=== PATIENT | male | born 1965 | race Caucasian/White ===

== ENCOUNTER 2016-10-14 10:06 | Inpatient (IN) ==
--- NOTE | 2016-10-14 10:25 | Emergency Department Note ---
Disposition Clinical Impression: Cellulitis of right lower extremity Disposition: Admitted As Inpatient Condition: Good Referrals: Beka Young MD [Primary Care Provider] - Forms: ED Satisfaction Letter Time of Disposition: 12:54 Extremity Problem HPI - General Chief complaint: ED Extremity Problem,Nontraumatic Stated complaint: R leg pain/swelling s/p sx 09/27/16 Time Seen by Provider: 10/14/16 10:13 Source: patient, family Limitations: physical limitation Nursing Notes Reviewed: Yes Vital Signs Reviewed: Yes - History of Present Illness HPI Narrative: 51-year-old male presents emergency room for right lower extremity pain and swelling. Patient had varicose vein stripping done to the lower extremities proximally 2-3 weeks ago. He has had persistent right lower extremity pain and swelling. Seen postoperatively by his vascular surgeon for this and was started on Keflex. He also had ultrasound done as an outpatient of the right lower extremity which was negative for any blood clots. He presents to the ER today for increasing pain and warmth and redness to the right lower extremity. The left lower extremity he has had no problems with. He denies any documented fevers. No chest pain shortness of breath. No other complaints. he finished all of his keflex Pt Subjective Complaint: extremity pain, extremity swelling Onset (ago): day(s) Consistency: constant Injury Location: right Pain Scale: 6 Quality: aching Radiation: none Improves with: nothing Worsens with: weight bearing, walking, palpation Associated symptoms: Reports: denies other symptoms Context: recent surgery/procedure - Related Data Home Medications Medication Instructions Recorded Confirmed Atenolol [Tenormin] 75 mg PO DAILY #0 03/31/15 10/04/16 Atorvastatin Calcium [Lipitor] 80 mg PO HS #0 03/31/15 10/04/16 Clopidogrel [Plavix] 75 mg PO DAILY #0 03/31/15 10/04/16 Famotidine [Pepcid] 20 mg PO HS #0 03/31/15 10/04/16 Hydrochlorothiazide 25 mg PO DAILY #0 03/31/15 10/04/16 Aspirin Enteric Coated [Aspirin EC] 81 mg PO DAILY 11/03/15 10/04/16 Multivitamin [Multivitamins] 1 each PO DAILY 11/03/15 10/04/16 Potassium 99 mg PO DAILY 11/03/15 10/04/16 Albuterol Sulfate [Albuterol 2 puff IH Q4HR PRN 08/13/16 10/04/16 Inhaler] Cetirizine HCl [Zyrtec] 10 mg PO DAILY 08/13/16 10/04/16 Cyclobenzaprine HCl 5 mg PO DAILY PRN 08/13/16 10/04/16 Isosorbide MONOnitrate (24 HR) 60 mg PO DAILY 08/13/16 10/04/16 [Imdur] Nitroglycerin [Nitrostat] 0.4 mg SL Q5M PRN 08/13/16 10/04/16 Pantoprazole Sodium [Protonix] 40 mg PO DAILY 08/13/16 10/04/16 Previous Rx's Medication Instructions Recorded Acetaminophen [Tylenol] 1,000 mg PO Q6HR PRN #0 tablet 09/23/16 OxyCODONE/APAP 5/325 [Percocet 1 each PO Q4HR PRN #20 tablet 10/04/16 5/325 MG] Allergies Allergy/AdvReac Type Severity Reaction Status Date / Time No Known Allergies Allergy Verified 10/14/16 10:08 All systems ED: reviewed and negative except as stated. Constitutional: Reports: as per HPI Eyes: Reports: as per HPI Cardiovascular: Reports: as per HPI Respiratory: Reports: as per HPI Gastrointestinal: Reports: as per HPI Integumentary: Reports: other (redness to RLE) Neurological: Reports: as per HPI Psychiatric: Reports: as per HPI Endocrine: Reports: as per HPI Hematological/Lymphatic: Reports: as per HPI Allergic/Immunologic: Reports: as per HPI Past Medical History - Past Medical History Medical history: Reports: hyperlipidemia, hypertension, myocardial infarction, other Surgical history: Reports: angioplasty/stent, appendectomy Psychiatric history: Reports: no psych history - Social History Smoking Status: Never smoker Smokeless Tobacco Status: No Alcohol use: Reports: none Drug use: Reports: none Physical Exam - General Limitations: physical limitation General appearance: alert, in no apparent distress - Head Head exam: atraumatic, normocephalic - Neck Neck exam: Present: normal inspection - Chest Chest inspection: Present: normal inspection - Respiratory Respiratory exam: Present: normal lung sounds bilaterally - Cardiovascular Cardiovascular exam: Present: regular rate, normal rhythm - Abdominal Exam Abdominal exam: Present: soft, Non-Tender, normal bowel sounds - Extremities Exam Extremities exam: Present: tenderness (diffuse tenderness to Right calf, medially along GSV course. some redness to this area as well. ) - Neurological Exam Neurological exam: Present: alert, oriented X3 - Psychiatric Psychiatric exam: Present: normal affect, normal mood - Skin Skin exam: Present: warm, dry, intact Course Course Narrative: Patient had a right lower extremity Doppler that was negative for any acute DVT. Lab work was stable. We will start the patient on IV vancomycin. I spoke with his vascular surgeon and with the hospitalist. We will admit for observation. Vital Signs Temperature 97.7 F 10/14/16 10:08 Pulse Rate 77 10/14/16 10:08 Respiratory Rate 18 10/14/16 10:08 Blood Pressure 143/84 10/14/16 10:08 O2 Sat by Pulse Oximetry 96 10/14/16 10:08 Temperature 97.7 F 10/14/16 10:08 Pulse Rate 77 10/14/16 10:08 Respiratory Rate 18 10/14/16 10:08 Blood Pressure 143/84 10/14/16 10:08 O2 Sat by Pulse Oximetry 96 10/14/16 10:08 Oxygen Delivery Oxygen Delivery Room Air Extremity Problem, Nontraumati - Lab Data Result diagrams: 10/14/16 10:36 10/14/16 10:36 Lab Results 10/14/16 10/14/16 Range/Units 10:36 10:36 WBC 7.4 (4.3-11.1) K/mcL RBC 5.27 (4.19-5.50) M/mcL Hgb 14.5 (12.9-16.9) g/dL Hct 44.7 (37.5-50.1) % MCV 84.8 (83.0-100.0) fL MCH 27.5 L (28.0-33.3) pg MCHC 32.4 (31.6-35.5) g/dL RDW 13.9 (11.5-14.5) % Plt Count 197 (140-400) K/mcL MPV 11.1 (9.4-12.4) fL Immature Gran % 0.3 (0-4) % Seg Neutrophils % 62.7 % Lymphocytes % 25.2 % Monocytes % 7.1 % Eosinophils % 4.3 % Basophils % 0.4 % Neutrophils # 4.6 (1.6-8.9) K/mcL Lymphocytes # 1.9 (0.6-4.6) K/mcL Monocytes # 0.5 (0.0-1.3) K/mcL Eosinophils # 0.3 (0.0-0.6) K/mcL Basophils # 0.0 (0.0-0.2) K/mcL Sodium 140 (136-145) mEq/L Potassium 3.9 (3.5-4.5) mEq/L Chloride 103 (98-109) mEq/L Carbon Dioxide 29 (19-29) mEq/L BUN 15 (8-26) mg/dL Creatinine 0.88 (0.72-1.25) mg/dL Est GFR ( Amer) > 60 (> 60) Est GFR (Non-Af Amer) > 60 (> 60) BUN/Creatinine Ratio 17 (6-26) Glucose 112 H (70-99) mg/dL Calculated Osmolality 292 (280-300) Calcium 9.3 (8.6-10.8) mg/dL
[2016-10-14 10:49] LABS: Basophils % 0.4 %; Eosinophils # 0.3 K/mcL (0.0-0.6); Eosinophils % 4.3 %; Hematocrit 44.7 % (37.5-50.1); Hemoglobin 14.5 g/dL (12.9-16.9); Immature Granulocytes % 0.3 % (0-4); Lymphocytes # 1.9 K/mcL (0.6-4.6); Lymphocytes % 25.2 %; Mean Corpuscular HGB Conc 32.4 g/dL (31.6-35.5); Mean Corpuscular Hemoglobin 27.5 pg (28.0-33.3); Mean Corpuscular Volume 84.8 fL (83.0-100.0); Mean Platelet Volume 11.1 fL (9.4-12.4); Monocytes # 0.5 K/mcL (0.0-1.3); Monocytes % 7.1 %; Neutrophils # 4.6 K/mcL (1.6-8.9); Platelet Count 197 K/mcL (140-400); Red Blood Count 5.27 M/mcL (4.19-5.50); Red Cell Distribution Width 13.9 % (11.5-14.5); Segmented Neutrophils % 62.7 %
[2016-10-14 11:01] LABS: BUN/Creatinine Ratio 17 (6-26); Blood Urea Nitrogen 15 mg/dL (8-26); Calcium 9.3 mg/dL (8.6-10.8); Carbon Dioxide 29 mEq/L (19-29); Chloride 103 mEq/L (98-109); Glucose 112 mg/dL (70-99); Osmolality,Calculated 292 (280-300); Potassium 3.9 mEq/L (3.5-4.5); Sodium 140 mEq/L (136-145); eGFR For African Americans > 60 (> 60); eGFR For Non-African Americans > 60 (> 60)
[2016-10-14] MEDS ORDERED: Vancomycin 1,500 MG in D5% in Water 250 ML IVPB ONE (13:00)
[2016-10-14] MEDS ORDERED: Naloxone 0.4 MG/ML INJ IVP PRN (13:04)
[2016-10-14] MEDS ORDERED: Ondansetron 4 MG/2 ML VIAL IVP PRN (13:04)
[2016-10-14] MEDS ORDERED: Acetaminophen 325 MG TABLET PO PRN (13:04)
[2016-10-14] MEDS ORDERED: Nitroglycerin 0.4 MG TAB.SUBL SL PRN (13:37)
--- NOTE | 2016-10-14 14:41 | Internal Med History&Physical ---
<Berkley Torres - Last Filed: 10/14/16 14:57> Date of Encounter: 10/14/16 Time of Encounter: 13:00 Assessment and Plan (1) Cellulitis of right lower extremity Current visit: Yes Status: Acute 1 patient status post vein stripping approximately 2-3 weeks ago. Experiencing redness warmth and swelling to right lower leg. No fevers no leukocytosis. We will obtain blood cultures will obtain wound cultures. Empiric coverage with vancomycin and Zosyn 2 continue to monitor CBC 3 consult placed for vascular-ED physician spoke with Dr. Parker 4 ultrasound obtained in the ED negative for DVT (2) HTN (hypertension) Current visit: No Status: Chronic Presently controlled we will continue with home medications goal is to make systolic less than 140 2 low sodium diet Qualifiers: Hypertension type: essential hypertension Qualified Code(s): I10 - Essential (primary) hypertension (3) CAD (coronary artery disease) Current visit: No Status: Chronic 1 history of stent placement will continue with dual antiplatelet aspirin Plavix as well as statin continue with beta bertha Imdur Cardiac diet Nitroglycerin/ oxygen as needed Qualifiers: Coronary Disease-Associated Artery/Lesion type: [place] artery [place] vs. transplanted heart: [place] heart Associated angina: without angina Qualified Code(s): I25.10 - Atherosclerotic heart disease of [place] coronary artery without angina pectoris (4) DVT prophylaxis Current visit: No Status: Acute [facility] Internal [facility] - H&P: HPI Chief complaint: Right lower leg pain Admitted From: Emergency Dept Plans for Post Hospital Care: Home History of present illness: Mr. Herzog is a 51 year old male past medical history of CAD with stent placement as well as hypertension GERD varicose veins. According to the patient he he underwent varicose pain stripping September 27 and October 04 of his right and left lower extremity. Postprocedure he has had persistent right lower extremity pain and swelling. He has had difficulty ambulating and performing ADLs. He did follow-up with his vascular surgeon and ultrasound was completed as outpatient which was negative for any blood clots. He was placed on Keflex which she completed however his right leg continues to be red and swollen and warm to touch. He denies problems with his left lower extremity. He denies any fevers chills cough shortness of breath chest pain. He presented to the ER with the above complaints. According to ER records was obtained and was negative for any leukocytosis vital signs were stable and he was afebrile patient had a right lower extremity Doppler completed in the ER which was negative for any acute DVT patient was initiated on vancomycin ER physician did speak with vascular surgeon the patient has been admitted for further workup and evaluation. Presently the patient does complain of some achiness in his right lower leg. Right leg is swollen red warm to touch pedal pulse is palpable leg is tender to touch. Lungs sounds are clear throughout heart sounds S1-S2 with no rubs clicks gallops or murmurs noted. He is hemodynamically stable at this time I reviewed this case with who agrees with plan Past Med Surg Social Fam HX - Past Medical History Medical history: hyperlipidemia, hypertension, myocardial infarction, other Psychiatric history: no psych history - Past Surgical History Surgical History: angioplasty/stent, appendectomy - Social History Smoking Status: Never smoker Smokeless Tobacco Status: No Alcohol use: none Drug use: none - Family History Father Living Status: Still Living Hx Family Cardiac Disorders: Yes (CHF, CABG) Internal Medicine - H&P: Meds Atenolol [Tenormin] 75 mg PO DAILY #0 03/31/15 [History] Atorvastatin Calcium [Lipitor] 80 mg PO HS #0 03/31/15 [History] Clopidogrel [Plavix] 75 mg PO DAILY #0 03/31/15 [History] Famotidine [Pepcid] 20 mg PO HS #0 03/31/15 [History] Hydrochlorothiazide 25 mg PO DAILY #0 03/31/15 [History] Aspirin Enteric Coated [Aspirin EC] 81 mg PO DAILY 11/03/15 [History] Multivitamin [Multivitamins] 1 tab PO DAILY 11/03/15 [History] Potassium 99 mg PO DAILY 11/03/15 [History] Albuterol Sulfate [Albuterol Inhaler] 2 puff IH Q4HR PRN 08/13/16 [History] Cetirizine HCl [Zyrtec] 10 mg PO DAILY 08/13/16 [History] Cyclobenzaprine HCl 5 mg PO DAILY PRN 08/13/16 [History] Isosorbide MONOnitrate (24 HR) [Imdur] 60 mg PO DAILY 08/13/16 [History] Nitroglycerin [Nitrostat] 0.4 mg SL Q5M PRN 08/13/16 [History] Pantoprazole Sodium [Protonix] 40 mg PO DAILY 08/13/16 [History] Acetaminophen [Tylenol] 1,000 mg PO Q6HR PRN #0 tablet 09/23/16 [Rx] OxyCODONE/APAP 5/325 [Percocet 5/325 MG] 1 tab PO Q4HR PRN 10/14/16 [History] Allergies No Known Allergies Allergy (Verified 10/14/16 10:08) All Systems PM: A 10-system review of systems was performed and is negative for pertinent findings except as documented above in the HPI. - Constitutional Constitutional: no chills, no fever(s), no night sweats - EENT Eyes: no change in vision, no discharge, no pain, no photophobia - Cardiovascular Cardiovascular ROS IM: edema, no chest pain, no diaphoresis, no dyspnea, no lightheadedness, no palpitations, no syncope - Respiratory Respiratory: no cough, no dyspnea, no wheezing, no excessive phlegm production - Gastrointestinal Gastrointestinal: no abdominal pain, no diarrhea, no hematemesis, no hematochezia, no melena, no nausea, no vomiting - Musculoskeletal Musculoskeletal ROS IM: muscle weakness - Integumentary Integumentary IM: erythema - Neurological Neurological ROS: no confusion, no convulsions, no focal weakness, no numbness, no tingling, no tremor(s) - Hematologic/Lymphatic Hematologic/Lymphatic: no easy bruising - Constitutional Vitals: Temp Pulse Resp BP Pulse Ox 98.1 F 68 18 127/80 94 10/14/16 14:31 10/14/16 14:31 10/14/16 14:31 10/14/16 14:31 10/14/16 14:31 General appearance: Present: A&O X 3, morbidly obese, answers questions appropriately - Head Head exam: Present: atraumatic, normocephalic - Eye Eye exam: Present: PERRL, conjuntiva pink, sclera anicteric Pupils: Present: PERRL - Neck Neck exam general surgery: Present: supple, trachea midline. Absent: lymphadenopathy - Respiratory Respiratory exam: Present: CTAB. Absent: accessory muscle use, rales, rhonchi, wheezes - Cardiovascular Cardiovascular exam: Present: RRR, +S1, +S2. Absent: diastolic murmur, gallop, rubs, systolic murmur - GI/Abdominal GI/Abdominal exam: Present: normal bowel sounds, soft, no peritoneal signs. Absent: distended, tenderness - Extremities Exam Extremities exam: Present: tenderness, warm, radial pulses palpable and symetrical. Absent: calf tenderness, cyanotic, pedal edema - Expanded Lower Extremities Exam Lower Leg exam: Present: erythema, swelling, tenderness - Neurological Exam Neurological exam: Present: CN II-XII intact, oriented X3, no focal deficits. Absent: pronater drift, facial droop, speech deficit - Skin Skin exam: Present: dry, intact Internal Med - H&P Results - Labs CBC & Chem 7: 10/14/16 10:36 10/14/16 10:36 <Jackelyn Juares - Last Filed: 10/14/16 15:36> Date of Encounter: 10/14/16 Time of Encounter: 15:34 Internal Medicine - H&P: HPI History of present illness: Mr. Herzog is a 51 year old male All Systems PM: A 10-system review of systems was performed and is negative for pertinent findings except as documented above in the HPI. - Constitutional Vitals: Temp Pulse Resp BP Pulse Ox 98.1 F 68 18 127/80 94 10/14/16 14:31 10/14/16 14:31 10/14/16 14:31 10/14/16 14:31 10/14/16 14:31 Internal Med - H&P Results - Labs CBC & Chem 7: 10/14/16 10:36 10/14/16 10:36 - Attending Attestation Patient independently seen and examined with family present at bedside. Pt reports of having severe pain and redness for the last few days. Will admit and treat for RLE cellulitis. RLE negative for DVT (preliminary report) continue empiric IV abx: Vancomycin and Zosyn Pain control f/u Vascular surgery consult with Dr. Queen Case discussed with HORACIO Torres. I agree with her documented findings, assessment, and plan.
[2016-10-14] MEDS: Piperacillin/Tazobactam 3.375 GM in D5% in Water (Mini-Bag+) 100 ML IVPB SCH (16:10)
[2016-10-14] MEDS: *HR* HYDROcodone/Acet 5/325 mg TABLET PO PRN (16:13)
[2016-10-14] MEDS: Famotidine 20 MG TABLET PO SCH (20:56)
[2016-10-14] MEDS: *HR* Morphine 2 MG/ML SYRINGE IVP PRN (21:11)
--- NOTE | 2016-10-14 21:53 | Vascular/[facility] Progress Note ---
Date of Encounter: 10/14/16 Time of Encounter: 17:15 - Assessment and plan (1) Cellulitis of right lower extremity Current Visit: Yes Status: Acute The patient has a cellulitis of the right anterior leg. His incisions are well approximated and appear to be healing. He has no evidence of purulence or abscess. He has no evidence of systemic infection. He has failed oral antibiotic therapy and is currently on vancomycin and zosyn. Will reassess patient tomorrow. - Subjective Interval history: The patient is a 51 year old male with recurrent episodes of cellulitis secondary to chronic venous hypertension. He underwent a phlebectomy in the right lower extremity several weeks ago. He has a developed a cellulitis. He was treated with oral antibiotics, but his symptoms have persisted. He was admitted through the ER for antibiotic therapy. He was started on Vancomycin and Zosyn. He denies any fevers or chills. He denies chest pain or shortness of breath. Vital Signs, Last 4 Hours Temp Pulse Resp Pulse Ox 10/14/16 19:51 98.0 F 71 18 94 - Physical Examination General: Present: Conversant, No Apparent Distress HEENT: Present: Pupils equal Cardiac: Present: Reg Rate and Rhythm Lungs: Present: Normal Breath Sounds Neuro: Present: Alert and responsive, No focal deficits noted, Motor nerves grossly intact, Sensory nerves grossly intact Vascular: Present: Edema, Surgical incisions (incisions clean, dry and intact without erythema or drainage) Abdomen: Present: Soft Skin: Present: Other (Trace RLE edema, induration and erythema present, no purulence, no fluctuance) Results 10/14/16 10:36 10/14/16 10:36 Consult Discharge Plan - Plan Referrals: Beka Young MD [Primary Care Provider] -
[2016-10-15] MEDS ORDERED: Vancomycin (wt based) 1,000 MG VIAL IVPB SCH
[2016-10-15] MEDS: Piperacillin/Tazobactam 3.375 GM in D5% in Water (Mini-Bag+) 100 ML IVPB SCH ×2 (00:33→08:17)
[2016-10-15] MEDS: Vancomycin 2,000 MG in D5% in Water 500 ML IVPB SCH ×2 (00:40→13:19)
[2016-10-15 04:25] LABS: Basophils % 0.5 %; Eosinophils # 0.4 K/mcL (0.0-0.6); Eosinophils % 5.2 %; Hematocrit 39.8 % (37.5-50.1); Hemoglobin 13.3 g/dL (12.9-16.9); Immature Granulocytes % 0.3 % (0-4); Immature Platelets 7.6 % (1.1-6.1); Lymphocytes # 2.3 K/mcL (0.6-4.6); Lymphocytes % 30.6 %; Mean Corpuscular HGB Conc 33.4 g/dL (31.6-35.5); Mean Corpuscular Hemoglobin 28.1 pg (28.0-33.3); Monocytes # 0.8 K/mcL (0.0-1.3); Monocytes % 10.6 %; Neutrophils # 3.9 K/mcL (1.6-8.9); Platelet Count 167 K/mcL (140-400); Red Blood Count 4.74 M/mcL (4.19-5.50); Red Cell Distribution Width 14.1 % (11.5-14.5); Segmented Neutrophils % 52.8 %
[2016-10-15 04:41] LABS: BUN/Creatinine Ratio 15 (6-26); Blood Urea Nitrogen 13 mg/dL (8-26); Carbon Dioxide 28 mEq/L (19-29); Chloride 102 mEq/L (98-109); Glucose 96 mg/dL (70-99); Osmolality,Calculated 288 (280-300); Potassium 3.7 mEq/L (3.5-4.5); Sodium 139 mEq/L (136-145); eGFR For African Americans > 60 (> 60); eGFR For Non-African Americans > 60 (> 60)
[2016-10-15] MEDS: *HR* Enoxaparin 40 MG/0.4 ML SYRINGE SQ SCH (05:38)
[2016-10-15] MEDS: Loratadine 10 MG TABLET PO SCH (08:19)
[2016-10-15] MEDS: Aspirin Enteric Coated 81 MG Tablet PO SCH (08:19)
[2016-10-15] MEDS: hydroCHLOROthiazide 25 MG TABLET PO SCH (08:19)
[2016-10-15] MEDS: Isosorbide MONOnitrate (24 HR) 60 MG TAB.ER.24H PO SCH (08:19)
[2016-10-15] MEDS: *HR* HYDROcodone/Acet 5/325 mg TABLET PO PRN ×2 (08:31→13:19)
[2016-10-15] MEDS ORDERED: Aminoglycoside Consult 1 EACH MC ONE (12:00)
--- NOTE | 2016-10-15 15:26 | Internal Med Progress Note ---
Date of Encounter: 10/15/16 Time of Encounter: 15:24 - Assessment and plan (1) Cellulitis of right lower extremity Current Visit: Yes Status: Acute Assessment and plan: failed outpatient therapy with keflex, had varicoise veins removed on September 27 discontinue vancomycin day 2 start doxycycline, the patient is willing to try to descalate antibiotics , may go back to vancomycin if not improving high risk for sepsis (2) HTN (hypertension) Current Visit: No Status: Chronic Assessment and plan: stable Qualifiers: Hypertension type: essential hypertension Qualified Code(s): I10 - Essential (primary) hypertension (3) CAD (coronary artery disease) Current Visit: No Status: Chronic Assessment and plan: stable Qualifiers: Coronary Disease-Associated Artery/Lesion type: [place] artery [place] vs. transplanted heart: [place] heart Associated angina: without angina Qualified Code(s): I25.10 - Atherosclerotic heart disease of [place] coronary artery without angina pectoris - Subjective Interval history: severe pain on the right lower extremity, no fever, no CP or SOB, no dysuria, no diarrhea - Constitutional Vitals: Temp Pulse Resp BP Pulse Ox 98.2 F 86 18 128/67 93 10/15/16 10:55 10/15/16 10:55 10/15/16 10:55 10/15/16 10:55 10/15/16 10:55 General appearance: Present: A&O X 3, morbidly obese, answers questions appropriately - Head Head exam: Present: atraumatic, normocephalic - Eye Eye exam: Present: PERRL, conjuntiva pink, sclera anicteric Pupils: Present: PERRL - Neck Neck exam general surgery: Present: supple, trachea midline. Absent: lymphadenopathy - Respiratory Respiratory exam: Present: CTAB. Absent: accessory muscle use, rales, rhonchi, wheezes - Cardiovascular Cardiovascular exam: Present: RRR, +S1, +S2. Absent: diastolic murmur, gallop, rubs, systolic murmur - GI/Abdominal GI/Abdominal exam: Present: normal bowel sounds, soft, no peritoneal signs. Absent: distended, tenderness - Extremities Exam Extremities exam: Present: warm, radial pulses palpable and symetrical. Absent : calf tenderness, cyanotic, pedal edema - Neurological Exam Neurological exam: Present: CN II-XII intact, oriented X3, no focal deficits. Absent: pronater drift, facial droop, speech deficit - Skin Skin exam: Present: dry. Absent: intact (large area of erythema and multiple lesions over the right guzman improving) Internal Medicine: Result - Labs CBC & Chem 7: 10/15/16 04:08 10/15/16 04:08 Labs: Short CBC 10/15/16 Range/Units 04:08 WBC 7.4 (4.3-11.1) K/mcL Hgb 13.3 (12.9-16.9) g/dL Hct 39.8 (37.5-50.1) % Plt Count 167 (140-400) K/mcL Neutrophils # 3.9 (1.6-8.9) K/mcL BMP 10/15/16 04:08 Sodium 139 Potassium 3.7 Chloride 102 Carbon Dioxide 28 BUN 13 Creatinine 0.89 Glucose 96 Calcium 9.0 Consult Discharge Plan - Plan Referrals: Beka Young MD [Primary Care Provider] -
[2016-10-15] MEDS: Doxycycline 100 MG in 0.9 % Sodium Chloride Mini Bag 100 ML IVPB SCH (18:37)
[2016-10-15] MEDS: Famotidine 20 MG TABLET PO SCH (20:47)
[2016-10-15] MEDS: *HR* Morphine 2 MG/ML SYRINGE IVP PRN (23:48)
[2016-10-16 05:34] LABS: BUN/Creatinine Ratio 15 (6-26); Blood Urea Nitrogen 13 mg/dL (8-26); Carbon Dioxide 30 mEq/L (19-29); Chloride 102 mEq/L (98-109); Glucose 98 mg/dL (70-99); Osmolality,Calculated 292 (280-300); Potassium 3.7 mEq/L (3.5-4.5); Sodium 141 mEq/L (136-145); eGFR For African Americans > 60 (> 60); eGFR For Non-African Americans > 60 (> 60)
[2016-10-16] MEDS: Doxycycline 100 MG in 0.9 % Sodium Chloride Mini Bag 100 ML IVPB SCH ×2 (06:33→17:09)
[2016-10-16] MEDS: *HR* Enoxaparin 40 MG/0.4 ML SYRINGE SQ SCH (06:35)
[2016-10-16] MEDS: Aspirin Enteric Coated 81 MG Tablet PO SCH (08:36)
[2016-10-16] MEDS: hydroCHLOROthiazide 25 MG TABLET PO SCH (08:37)
[2016-10-16] MEDS: *HR* HYDROcodone/Acet 5/325 mg TABLET PO PRN (08:37)
[2016-10-16] MEDS: Loratadine 10 MG TABLET PO SCH (08:38)
[2016-10-16] MEDS: Isosorbide MONOnitrate (24 HR) 60 MG TAB.ER.24H PO SCH (08:39)
[2016-10-16] MEDS: *HR* Morphine 2 MG/ML SYRINGE IVP PRN ×3 (10:17→22:38)
--- NOTE | 2016-10-16 12:38 | Vascular/[facility] Progress Note ---
Date of Encounter: 10/15/16 Time of Encounter: 19:30 - Assessment and plan (1) Cellulitis of right lower extremity Status: Acute The patient has a cellulitis of the right anterior leg. His incisions are well approximated and appear to be healing. He has no evidence of purulence or abscess. He has no evidence of systemic infection. He has improved with vancomycin. Continue with antibiotics. - Subjective Interval history: The patient is feeling better but still reports tenderness at his calf. He denies any fevers or chills. He denies chest pain or shortness of breath. Vital Signs, Last 4 Hours Temp Pulse Resp BP Pulse Ox 10/16/16 10:52 98.3 F 71 18 128/61 94 - Physical Examination General: Present: Conversant Cardiac: Present: Reg Rate and Rhythm Lungs: Present: Normal Breath Sounds Neuro: Present: Alert and responsive, No focal deficits noted Vascular: Present: Pulse, normal, Surgical incisions (intact, decreased erythema noted, no fluctuance, no purulence). Absent: Edema Results 10/15/16 04:08 10/16/16 05:04 Lab Results, Last 24 hours 10/16/16 05:04 Sodium 141 Potassium 3.7 Chloride 102 Carbon Dioxide 30 H BUN 13 Creatinine 0.86 Glucose 98 Calcium 9.0 Consult Discharge Plan - Plan Additional Instructions: Follow with primary care physician within the next 7 days. Follow with vascular surgery within the next 7 days. Complete 5 more days of doxycycline. Avoid sun exposure while taking his antibiotic. Do not take Tylenol with the pain pill/oxycodone that was provided Referrals: Yan Queen MD [Partnered Physician] - Beka Young MD [Primary Care Provider] - 10/25/16 10:15 am Prescriptions: OxyCODONE/APAP 7.5/325 [Percocet 7.5/325 MG] 1 each PO Q6HR PRN #25 tablet PRN Reason: Pain Doxycycline 100 mg PO BID #10 capsule
--- NOTE | 2016-10-16 12:41 | Vascular/[facility] Progress Note ---
Date of Encounter: 10/16/16 Time of Encounter: 12:00 - Assessment and plan (1) Cellulitis of right lower extremity Current Visit: Yes Status: Acute The patient has a cellulitis of the right anterior leg. He is slowly improving. He is now on Doxycycline intravenously. Recommend continued iv antibiotics today. Possible discharge tomorrow if leg continues to improve. (2) Idiopathic chronic venous hypertension of both lower extremities with inflammation Current Visit: Yes Status: Acute (3) CAD (coronary artery disease) Current Visit: No Status: Chronic Qualifiers: Coronary Disease-Associated Artery/Lesion type: [place] artery [place] vs. transplanted heart: [place] heart Associated angina: without angina Qualified Code(s): I25.10 - Atherosclerotic heart disease of [place] coronary artery without angina pectoris (4) HTN (hypertension) Current Visit: No Status: Chronic Qualifiers: Hypertension type: essential hypertension Qualified Code(s): I10 - Essential (primary) hypertension - Subjective Interval history: The patient reports that his leg is slowly feeling better. He states that the erythema has decreased significantly. He denies fevers, chills, chest pain or shortness of breath. Vital Signs, Last 4 Hours Temp Pulse Resp BP Pulse Ox 10/16/16 10:52 98.3 F 71 18 128/61 94 - Physical Examination General: Present: Conversant, No Apparent Distress HEENT: Present: Atraumatic Cardiac: Present: Reg Rate and Rhythm Lungs: Present: Normal Breath Sounds Neuro: Present: Alert and responsive, No focal deficits noted, Motor nerves grossly intact, Sensory nerves grossly intact Vascular: Present: Normal capillary refill, Pulse, normal, Edema (trace). Absent: Cyanosis Skin: Present: Other (decreased erythema, no fluctuance, no purulence) Results 10/15/16 04:08 10/16/16 05:04 Lab Results, Last 24 hours 10/16/16 05:04 Sodium 141 Potassium 3.7 Chloride 102 Carbon Dioxide 30 H BUN 13 Creatinine 0.86 Glucose 98 Calcium 9.0 Consult Discharge Plan - Plan Referrals: Beka Young MD [Primary Care Provider] - 10/25/16 10:15 am
[2016-10-16] MEDS ORDERED: *HR* HYDROcodone/Acet 7.5/325 mg TABLET PO PRN (13:30)
--- NOTE | 2016-10-16 13:33 | Internal Med Progress Note ---
Date of Encounter: 10/16/16 Time of Encounter: 13:32 - Assessment and plan (1) Cellulitis of right lower extremity Current Visit: Yes Status: Acute Assessment and plan: failed outpatient therapy with keflex, had varicoise veins removed on September 27 discontinued vancomycin at day 2 started doxycycline day 2, the patient was willing to try to descalate antibiotics , may go back to vancomycin if not improving high risk for sepsis (2) HTN (hypertension) Current Visit: No Status: Chronic Assessment and plan: stable Qualifiers: Hypertension type: essential hypertension Qualified Code(s): I10 - Essential (primary) hypertension (3) CAD (coronary artery disease) Current Visit: No Status: Chronic Assessment and plan: stable Qualifiers: Coronary Disease-Associated Artery/Lesion type: [place] artery [place] vs. transplanted heart: [place] heart Associated angina: without angina Qualified Code(s): I25.10 - Atherosclerotic heart disease of [place] coronary artery without angina pectoris - Subjective Interval history: still complaining of severe pain on the right lower extremity, no fever, no CP or SOB, no dysuria, no diarrhea - Constitutional Vitals: Temp Pulse Resp BP Pulse Ox 98.3 F 71 18 128/61 94 10/16/16 10:52 10/16/16 10:52 10/16/16 10:52 10/16/16 10:52 10/16/16 10:52 General appearance: Present: A&O X 3, morbidly obese, answers questions appropriately - Head Head exam: Present: atraumatic, normocephalic - Eye Eye exam: Present: PERRL, conjuntiva pink, sclera anicteric Pupils: Present: PERRL - Neck Neck exam general surgery: Present: supple, trachea midline. Absent: lymphadenopathy - Respiratory Respiratory exam: Present: CTAB. Absent: accessory muscle use, rales, rhonchi, wheezes - Cardiovascular Cardiovascular exam: Present: RRR, +S1, +S2. Absent: diastolic murmur, gallop, rubs, systolic murmur - GI/Abdominal GI/Abdominal exam: Present: normal bowel sounds, soft, no peritoneal signs. Absent: distended, tenderness - Extremities Exam Extremities exam: Present: warm, radial pulses palpable and symetrical. Absent : calf tenderness, cyanotic, pedal edema - Neurological Exam Neurological exam: Present: CN II-XII intact, oriented X3, no focal deficits. Absent: pronater drift, facial droop, speech deficit - Skin Skin exam: Present: dry, excoriation (right guzman erythema with multiple escoriations). Absent: intact Internal Medicine: Result - Labs CBC & Chem 7: 10/15/16 04:08 10/16/16 05:04 Labs: BMP 10/16/16 05:04 Sodium 141 Potassium 3.7 Chloride 102 Carbon Dioxide 30 H BUN 13 Creatinine 0.86 Glucose 98 Calcium 9.0 Consult Discharge Plan - Plan Referrals: Beka Young MD [Primary Care Provider] - 10/25/16 10:15 am
[2016-10-16] MEDS: Famotidine 20 MG TABLET PO SCH (20:22)
[2016-10-17] MEDS: Doxycycline 100 MG in 0.9 % Sodium Chloride Mini Bag 100 ML IVPB SCH ×2 (05:49→16:52)
[2016-10-17] MEDS: *HR* Enoxaparin 40 MG/0.4 ML SYRINGE SQ SCH (05:50)
[2016-10-17] MEDS: hydroCHLOROthiazide 25 MG TABLET PO SCH (07:45)
[2016-10-17] MEDS: Loratadine 10 MG TABLET PO SCH (07:45)
[2016-10-17] MEDS: Isosorbide MONOnitrate (24 HR) 60 MG TAB.ER.24H PO SCH (07:45)
[2016-10-17] MEDS: Aspirin Enteric Coated 81 MG Tablet PO SCH (07:45)
[2016-10-17 10:43] VITALS: BP 118/70
[2016-10-17] MEDS: *HR* Morphine 2 MG/ML SYRINGE IVP PRN (16:56)
--- NOTE | 2016-10-17 17:12 | Discharge Summary ---
Date of Encounter: 10/17/16 Time of Encounter: 17:10 - Discharge Diagnosis (1) Cellulitis of right lower extremity Priority: Primary Status: Acute Comments: failed outpatient therapy with keflex, had varicoise veins removed on September 27 (2) HTN (hypertension) Priority: Secondary Status: Chronic Qualifiers: Hypertension type: essential hypertension Qualified Code(s): I10 - Essential (primary) hypertension (3) CAD (coronary artery disease) Priority: Secondary Status: Chronic Qualifiers: Coronary Disease-Associated Artery/Lesion type: [place] artery [place] vs. transplanted heart: [place] heart Associated angina: without angina Qualified Code(s): I25.10 - Atherosclerotic heart disease of [place] coronary artery without angina pectoris - Discharge Medications Prescriptions: OxyCODONE/APAP 7.5/325 [Percocet 7.5/325 MG] 1 each PO Q6HR PRN #25 tablet PRN Reason: Pain Doxycycline 100 mg PO BID #10 capsule Home Medications: Atenolol [Tenormin] 75 mg PO DAILY #0 03/31/15 [History] Atorvastatin Calcium [Lipitor] 80 mg PO HS #0 03/31/15 [History] Clopidogrel [Plavix] 75 mg PO DAILY #0 03/31/15 [History] Famotidine [Pepcid] 20 mg PO HS #0 03/31/15 [History] hydroCHLOROthiazide [Hydrochlorothiazide] 25 mg PO DAILY #0 03/31/15 [History] Aspirin Enteric Coated [Aspirin EC] 81 mg PO DAILY 11/03/15 [History] Multivitamin [Multivitamins] 1 tab PO DAILY 11/03/15 [History] Potassium 99 mg PO DAILY 11/03/15 [History] Albuterol Sulfate [Albuterol Inhaler] 2 puff IH Q4HR PRN 08/13/16 [History] Cetirizine HCl [Zyrtec] 10 mg PO DAILY 08/13/16 [History] Cyclobenzaprine HCl 5 mg PO DAILY PRN 08/13/16 [History] Isosorbide MONOnitrate (24 HR) [Imdur] 60 mg PO DAILY 08/13/16 [History] Nitroglycerin [Nitrostat] 0.4 mg SL Q5M PRN 08/13/16 [History] Pantoprazole Sodium [Protonix] 40 mg PO DAILY 08/13/16 [History] Acetaminophen [Tylenol] 1,000 mg PO Q6HR PRN #0 tablet 09/23/16 [Rx] Doxycycline 100 mg PO BID #10 capsule 10/17/16 [Rx] OxyCODONE/APAP 7.5/325 [Percocet 7.5/325 MG] 1 each PO Q6HR PRN #25 tablet 10/17 [Rx] Allergies/Adverse Reactions: Allergies No Known Allergies Allergy (Verified 10/14/16 10:08) Date of admission: 10/14/16 14:14 Primary care physician: Beka Young MD - Patient Status Disposition: Home, Self-Care Condition: Good - Discharge Instructions Follow Up With: Beka Young MD [Primary Care Provider] - 10/25/16 10:15 am Additional Instructions: Follow with primary care physician within the next 7 days. Follow with vascular surgery within the next 7 days. Complete 5 more days of doxycycline. Avoid sun exposure while taking his antibiotic. Do not take Tylenol with the pain pill/oxycodone that was provided - Diet and Activity Activity: increase activity as tolerated Diet: low fat, low cholesterol Hospital course: Mr. Herzog is a 51 year old male with a past medical history of CAD with stent placement as well as hypertension GERD varicose veins. According to the patient he underwent varicose veins stripping September 27 and October 04 of his right and left lower extremity respectively. Postprocedure he has had persistent right lower extremity pain and swelling. He has had difficulty ambulating and performing ADLs. He did follow-up with his vascular surgeon and ultrasound was completed as outpatient which was negative for any blood clots. He was placed on Keflex which he completed however his right leg continued to be red and swollen and warm to touch. He presented to the ER with the above complaints. Was started on vancomycin IV by the ER physician who spoke with the vascular surgeon We discontinued vancomycin at day 2, doxycycline IV, the patient was willing to try to descalate antibiotics , has improved considerably. Stable to be discharged at the moment in order to follow up with Dr. Queen next Friday - Time Spent with Patient Total time spent providing and/or coordinating discharge services: Greater than 30 minutes (40 min) - Constitutional Vitals: Temp Pulse Resp BP Pulse Ox 97.7 F 69 18 118/70 94 10/17/16 10:39 10/17/16 10:39 10/17/16 10:39 10/17/16 10:39 10/17/16 10:39 General appearance: Present: A&O X 3, morbidly obese, answers questions appropriately - Head Head exam: Present: atraumatic, normocephalic - Eye Eye exam: Present: PERRL, conjuntiva pink, sclera anicteric Pupils: Present: PERRL - Neck Neck exam general surgery: Present: supple, trachea midline. Absent: lymphadenopathy - Respiratory Respiratory exam: Present: CTAB. Absent: accessory muscle use, rales, rhonchi, wheezes - Cardiovascular Cardiovascular exam: Present: RRR, +S1, +S2. Absent: diastolic murmur, gallop, rubs, systolic murmur - GI/Abdominal GI/Abdominal exam: Present: normal bowel sounds, soft, no peritoneal signs. Absent: distended, tenderness - Extremities Exam Extremities exam: Present: warm, radial pulses palpable and symetrical. Absent : calf tenderness, cyanotic, pedal edema - Neurological Exam Neurological exam: Present: CN II-XII intact, oriented X3, no focal deficits. Absent: pronater drift, facial droop, speech deficit - Skin Skin exam: Present: dry. Absent: intact (Right lower extremity/guzman erythema has reduced considerably)
== END 2016-10-17 18:40 | disposition home or self-care (01) | DRG 603 ==
LOC: 3ANU 10:06 → EMEROO 10:06 → 3ANU 13:22 → SUATTDRO 14:14
PROVIDERS: ADMIT Nurse Practitioner Acute Care; ATTEND Internal Medicine

== ENCOUNTER 2016-10-28 18:07 | Inpatient (IN) ==
[2016-10-28] MEDS ORDERED: Vancomycin 2,000 MG in D5% in Water 500 ML IVPB ONE (19:03)
--- NOTE | 2016-10-28 19:13 | Emergency Department Note ---
Disposition Clinical Impression: Cellulitis Qualifiers: Site of cellulitis of extremity: lower extremity Laterality: left Disposition: Admitted As Inpatient Condition: Fair Referrals: NO,PCP [Primary Care Provider] - Forms: ED Satisfaction Letter Time of Disposition: 21:30 Extremity Problem HPI - General Chief complaint: ED Extremity Problem,Nontraumatic Stated complaint: cellulitis Time Seen by Provider: 10/28/16 18:45 Source: patient Limitations: no limitations Nursing Notes Reviewed: Yes Vital Signs Reviewed: Yes - History of Present Illness HPI Narrative: Mr. Herzog, 51-year-old male, presents from home via POV with chief complaint of left lower extremity cellulitis. Described as erythematous, warm, and spreading. Onset Friday. Patient had subjective fever with chills on Friday. He spoke with his primary care physician, Dr. Mckeon, who advised he come to the emergency department. Of note, patient is on day 13 of doxycycline and day 3 of Bactrim in the area of erythema continues to grow. 14 August - 16 August, patient admitted to this facility for cellulitis of right lower extremity after failed outpatient therapy of Keflex really received 2 days of vancomycin and is doxycycline was initiated. 04 October, patient had right lower extremity venous stripping at this facility by Dr. San. 27 September, patient had right lower extremity venous stripping at this facility by Dr. San. PMH: Hypertension, CAD status post PCI with stent Medications: Aspirin, Plavix, doxycycline, Bactrim ROS: Admits subjective fever, chills, bilateral lower extremity swelling with left greater than right, left lower extremity erythema Denies: Dyspnea, chest pain, palpitations, nausea, vomiting, numbness, tingling Pain Scale: 6 - Related Data Home Medications Medication Instructions Recorded Confirmed Atenolol [Tenormin] 75 mg PO DAILY #0 03/31/15 10/14/16 Atorvastatin Calcium [Lipitor] 80 mg PO HS #0 03/31/15 10/14/16 Clopidogrel [Plavix] 75 mg PO DAILY #0 03/31/15 10/14/16 Famotidine [Pepcid] 20 mg PO HS #0 03/31/15 10/14/16 hydroCHLOROthiazide 25 mg PO DAILY #0 03/31/15 10/14/16 [Hydrochlorothiazide] Aspirin Enteric Coated [Aspirin EC] 81 mg PO DAILY 11/03/15 10/14/16 Multivitamin [Multivitamins] 1 tab PO DAILY 11/03/15 10/14/16 Potassium 99 mg PO DAILY 11/03/15 10/14/16 Albuterol Sulfate [Albuterol 2 puff IH Q4HR PRN 08/13/16 10/14/16 Inhaler] Cetirizine HCl [Zyrtec] 10 mg PO DAILY 08/13/16 10/14/16 Cyclobenzaprine HCl 5 mg PO DAILY PRN 08/13/16 10/14/16 Isosorbide MONOnitrate (24 HR) 60 mg PO DAILY 08/13/16 10/14/16 [Imdur] Nitroglycerin [Nitrostat] 0.4 mg SL Q5M PRN 08/13/16 10/14/16 Pantoprazole Sodium [Protonix] 40 mg PO DAILY 08/13/16 10/14/16 Sulfamethoxazole/Trimeth DS 1 tab PO BID 10/28/16 10/28/16 [Bactrim DS] Previous Rx's Medication Instructions Recorded Acetaminophen [Tylenol] 1,000 mg PO Q6HR PRN #0 tablet 09/23/16 Doxycycline 100 mg PO BID #10 capsule 10/17/16 Allergies Allergy/AdvReac Type Severity Reaction Status Date / Time No Known Allergies Allergy Verified 10/14/16 10:08 All systems ED: reviewed and negative except as stated. Past Medical History - Past Medical History Medical history: Reports: hyperlipidemia, hypertension, myocardial infarction, other Surgical history: Reports: angioplasty/stent, appendectomy Psychiatric history: Reports: no psych history - Social History Smoking Status: Never smoker Smokeless Tobacco Status: No Alcohol use: Reports: none Drug use: Reports: none Physical Exam Vital Signs Reviewed General: Patient is alert, oriented, and in no acute distress. HEENT: No facial asymmetry. Head is normocephalic and atraumatic. Trachea midline. Cardiovascular: Heart regular rate and rhythm without clicks, rubs, gallops, or murmurs. No JVD. PMI nondisplaced. 1+ pitting edema bilaterally lower extremities. Maximum circumference of left calf is 5 cm greater than maximum circumference right calf. Bilateral posterior tibial pulses not palpable however toenail beds have brisk capillary refill, foot is a temperature warm, no cyanosis. Respiratory: Symmetric chest rise with poor respiratory effort. Bilateral breath sounds are clear without wheezing, crackles, or rhonchi. Abdomen: Morbidly obese. Bowel sounds present normoactive x-4 quadrants. Abdomen is soft, nondistended, and nontender. Able to assess organomegaly given patient's body habitus. Integument: Well-healed scars in patient's right lower extremity consistent with varicose vein stripping. Left lower extremity is tender, warm, and erythematous from mid tibia to ankle circumferentially. No regions of necrosis or pustules. Psych: Patient's affect is appropriate for situation. - General Limitations: no limitations General appearance: alert, in no apparent distress Course Course Narrative: Concern is for possible left DVT as well as cellulitis from failed outpatient therapy. At minimum, patient will be admitted for IV antibiotics given failed outpatient therapy. We will Doppler ultrasound lower extremities to rule out DVT. We will draw blood cultures, lactate, and provide empiric vancomycin. Doppler ultrasound the patient's lower extremities showed no DVT. Patient was updated and agree to admission and no additional questions or concerns at this time. Spoke with the admitting hospitalist, Dr. Eisenberg, who agrees to admit the patient for lower extremity cellulitis failed outpatient therapy. He requested I add Unasyn. Vital Signs Temperature 98.1 F 10/28/16 18:17 Pulse Rate 80 10/28/16 18:17 Respiratory Rate 16 10/28/16 18:17 Blood Pressure 142/77 10/28/16 18:17 O2 Sat by Pulse Oximetry 94 10/28/16 18:17 Temperature 98.1 F 10/28/16 18:17 Pulse Rate 88 10/28/16 20:53 Respiratory Rate 18 10/28/16 20:53 Blood Pressure 124/73 10/28/16 20:53 O2 Sat by Pulse Oximetry 95 10/28/16 20:53 Oxygen Delivery Oxygen Delivery Room Air Extremity Problem, Nontraumati - Lab Data Result diagrams: 10/28/16 19:31 10/28/16 19:31 Lab Results 10/28/16 10/28/16 10/28/16 Range/Units 19:31 19:31 19:31 WBC 7.3 (4.3-11.1) K/mcL RBC 4.95 (4.19-5.50) M/mcL Hgb 13.8 (12.9-16.9) g/dL Hct 41.9 (37.5-50.1) % MCV 84.6 (83.0-100.0) fL MCH 27.9 L (28.0-33.3) pg MCHC 32.9 (31.6-35.5) g/dL RDW 14.3 (11.5-14.5) % Plt Count 177 (140-400) K/mcL MPV 11.6 (9.4-12.4) fL Immature Gran % 0.3 (0-4) % Seg Neutrophils % 58.6 % Lymphocytes % 25.1 % Monocytes % 10.8 % Eosinophils % 4.6 % Basophils % 0.6 % Neutrophils # 4.3 (1.6-8.9) K/mcL Lymphocytes # 1.8 (0.6-4.6) K/mcL Monocytes # 0.8 (0.0-1.3) K/mcL Eosinophils # 0.3 (0.0-0.6) K/mcL Basophils # 0.0 (0.0-0.2) K/mcL PT 11.3 (9.4-12.1) Seconds INR 1.0 APTT 32.2 (26.0-36.0) Seconds Sodium 138 (136-145) mEq/L Potassium 3.7 (3.5-4.5) mEq/L Chloride 105 (98-109) mEq/L Carbon Dioxide 25 (19-29) mEq/L BUN 13 (8-26) mg/dL Creatinine 0.91 (0.72-1.25) mg/dL Est GFR ( Amer) > 60 (> 60) Est GFR (Non-Af Amer) > 60 (> 60) BUN/Creatinine Ratio 14 (6-26) Glucose 103 H (70-99) mg/dL Calculated Osmolality 286 (280-300) Lactic Acid (0.5-2.2) mmol/L Calcium 9.3 (8.6-10.8) mg/dL 10/28/16 Range/Units 19:31 WBC (4.3-11.1) K/mcL RBC (4.19-5.50) M/mcL Hgb (12.9-16.9) g/dL Hct (37.5-50.1) % MCV (83.0-100.0) fL MCH (28.0-33.3) pg MCHC (31.6-35.5) g/dL RDW (11.5-14.5) % Plt Count (140-400) K/mcL MPV (9.4-12.4) fL Immature Gran % (0-4) % Seg Neutrophils % % Lymphocytes % % Monocytes % % Eosinophils % % Basophils % % Neutrophils # (1.6-8.9) K/mcL Lymphocytes # (0.6-4.6) K/mcL Monocytes # (0.0-1.3) K/mcL Eosinophils # (0.0-0.6) K/mcL Basophils # (0.0-0.2) K/mcL PT (9.4-12.1) Seconds INR APTT (26.0-36.0) Seconds Sodium (136-145) mEq/L Potassium (3.5-4.5) mEq/L Chloride (98-109) mEq/L Carbon Dioxide (19-29) mEq/L BUN (8-26) mg/dL Creatinine (0.72-1.25) mg/dL Est GFR ( Amer) (> 60) Est GFR (Non-Af Amer) (> 60) BUN/Creatinine Ratio (6-26) Glucose (70-99) mg/dL Calculated Osmolality (280-300) Lactic Acid 0.9 (0.5-2.2) mmol/L Calcium (8.6-10.8) mg/dL
--- NOTE | 2016-10-28 19:22 | Emergency Department Note ---
START Narrative - START START: I examined this patient and my medical decision-making was reviewed with the [facility] ATTENDANT/PA/Advanced Practice Nurse/Resident Physician. I agree with the documented findings, disposition and treatment plan as described except to the extent set forth below. ED attending note: Patient seen with emergency medicine resident Dr Kim. We independently evaluated the patient. We independently had [id number] contact with the patient. Please see a copy of his note for details of the history and physical, evaluation, management and disposition of this emergency Department patient. Briefly: A 51-year-old male obese with peripheral vascular disease being currently treated for lower extremity cellulitis is on 2 different agents but despite that having increasing pain and redness especially the posterior left calf. Denies shortness breath or chest pain. Patient had a Doppler study. Evaluate for DVT. If that is negative patient will be admitted still for outpatient failure for cellulitis. Disposition pending. Patient stable
[2016-10-28 19:45] LABS: Basophils % 0.6 %; Eosinophils # 0.3 K/mcL (0.0-0.6); Eosinophils % 4.6 %; Hematocrit 41.9 % (37.5-50.1); Hemoglobin 13.8 g/dL (12.9-16.9); Immature Granulocytes % 0.3 % (0-4); Lymphocytes # 1.8 K/mcL (0.6-4.6); Lymphocytes % 25.1 %; Mean Corpuscular HGB Conc 32.9 g/dL (31.6-35.5); Mean Corpuscular Hemoglobin 27.9 pg (28.0-33.3); Mean Corpuscular Volume 84.6 fL (83.0-100.0); Mean Platelet Volume 11.6 fL (9.4-12.4); Monocytes # 0.8 K/mcL (0.0-1.3); Monocytes % 10.8 %; Neutrophils # 4.3 K/mcL (1.6-8.9); Platelet Count 177 K/mcL (140-400); Prothrombin Time 11.3 Seconds (9.4-12.1); Red Blood Count 4.95 M/mcL (4.19-5.50); Red Cell Distribution Width 14.3 % (11.5-14.5); Segmented Neutrophils % 58.6 %
[2016-10-28 19:48] LABS: Activated Partial Thrombo Time 32.2 Seconds (26.0-36.0)
[2016-10-28 19:53] LABS: BUN/Creatinine Ratio 14 (6-26); Blood Urea Nitrogen 13 mg/dL (8-26); Calcium 9.3 mg/dL (8.6-10.8); Carbon Dioxide 25 mEq/L (19-29); Chloride 105 mEq/L (98-109); Glucose 103 mg/dL (70-99); Osmolality,Calculated 286 (280-300); Potassium 3.7 mEq/L (3.5-4.5); Sodium 138 mEq/L (136-145); eGFR For African Americans > 60 (> 60); eGFR For Non-African Americans > 60 (> 60)
[2016-10-28] MEDS ORDERED: Ampicillin/Sulbactam 1,500 MG in 0.9 % Sodium Chloride Mini Bag 100 ML IVPB ONE (20:56)
--- NOTE | 2016-10-28 22:44 | Internal Med History&Physical ---
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 so she is worried about any outpatient IV therapy should we consider that, we will bear this in mind in terms of possible discharge options will follow blood c/s, leg elevation, pain management, DVT prophylaxis, of note LLE doppler upon presentation was unremarkable, pt reports that his LLE is always bigger than the right Qualifiers: Site of cellulitis: extremity Site of cellulitis of extremity: lower extremity Laterality: left Qualified Code(s): L03.116 - Cellulitis of left lower limb (2) HTN (hypertension) Current visit: Yes Status: Chronic will continue his home regimen with BP monitoring Qualifiers: Hypertension type: essential hypertension Qualified Code(s): I10 - Essential (primary) hypertension (3) CAD (coronary artery disease) Current visit: Yes Status: Chronic no chest pain, we will continue his home regimen with symptoms monitoring Qualifiers: Coronary Disease-Associated Artery/Lesion type: [place] artery [place] vs. transplanted heart: [place] heart Associated angina: without angina Qualified Code(s): I25.10 - Atherosclerotic heart disease of [place] coronary artery without angina pectoris (4) GERD (gastroesophageal reflux disease) Current visit: Yes Status: Chronic will continue PPI Qualifiers: Esophagitis presence: without esophagitis Qualified Code(s): K21.9 - Gastro -esophageal reflux disease without esophagitis Internal Medicine - H&P: HPI Chief complaint: left lower extremity swelling Admitted From: Emergency Dept Plans for Post Hospital Care: Home History of present illness: Mr. Herzog is a 51 year old male with a history of bilateral lower extremity varicose veins s/p multiple striping and ablation and associated folliculitis and recurrent cellulitis was brought in for left lower extremity swelling. He was reportedly in his usual state of health a few days post left lower extremity varicose veins stripping when he began to notice on Friday that his left lower extremity was increasingly getting swollen. It had a red patch on the posterior lateral area with throbbing pain that was 6/10 in severity, was non radiating, pain was worse with movement and touch and the area was warm. He was started on Bactrim on Friday and had previously being on Doxycycline for about 14 days but his symptoms did not improve so he presented to the ER today for further evaluation and management. He reports subjective fever and chills but no nausea or vomiting. Past Med Surg Social Fam HX - Past Medical History Source: patient Medical history: hyperlipidemia, hypertension, myocardial infarction, other ( BLE varicose veins, morbid obesity) Psychiatric history: no psych history - Past Surgical History Surgical History: angioplasty/stent, appendectomy, other (vein stripping and ablation) - Social History Smoking Status: Never smoker Smokeless Tobacco Status: No Alcohol use: none Drug use: none Occupational status: employed (as a head mechanic) Current living situation: Home - Independent, With Family Activity Level: Independent ambulation Additional social history: he is and lives with his family at home - Family History Father Living Status: Still Living Hx Family Cardiac Disorders: Yes (CHF, CABG) Internal Medicine - H&P: Meds Atenolol [Tenormin] 75 mg PO DAILY #0 03/31/15 [History] Atorvastatin Calcium [Lipitor] 80 mg PO HS #0 03/31/15 [History] Clopidogrel [Plavix] 75 mg PO DAILY #0 03/31/15 [History] Famotidine [Pepcid] 20 mg PO BID #0 03/31/15 [History] hydroCHLOROthiazide [Hydrochlorothiazide] 25 mg PO DAILY #0 03/31/15 [History] Aspirin Enteric Coated [Aspirin EC] 81 mg PO QPM 11/03/15 [History] Multivitamin [Multivitamins] 1 tab PO DAILY 11/03/15 [History] Potassium 99 mg PO DAILY 11/03/15 [History] Albuterol Sulfate [Albuterol Inhaler] 2 puff IH Q4HR PRN 08/13/16 [History] Cetirizine HCl [Zyrtec] 10 mg PO QPM 08/13/16 [History] Cyclobenzaprine HCl 5 mg PO DAILY PRN 08/13/16 [History] Isosorbide MONOnitrate (24 HR) [Imdur] 60 mg PO DAILY 08/13/16 [History] Nitroglycerin [Nitrostat] 0.4 mg SL Q5M PRN 08/13/16 [History] Pantoprazole Sodium [Protonix] 40 mg PO QPM 08/13/16 [History] Acetaminophen [Tylenol] 1,000 mg PO Q6HR PRN #0 tablet 09/23/16 [Rx] Doxycycline 100 mg PO BID #10 capsule 10/17/16 [Rx] Sulfamethoxazole/Trimeth DS [Bactrim DS] 1 tab PO BID 10/28/16 [History] Allergies No Known Allergies Allergy (Verified 10/14/16 10:08) All Systems PM: A 10-system review of systems was performed and is negative for pertinent findings except as documented above in the HPI. - Constitutional Vitals: Temp Pulse Resp BP Pulse Ox 98.3 F 72 16 145/74 94 10/28/16 22:08 10/28/16 22:08 10/28/16 22:08 10/28/16 22:08 10/28/16 22:08 PHYSICAL EXAMINATION: GENERAL: Adult male, lying in bed with no sign of distress, Alert, obese looking HEENT: NC/AT, EOMI, PERRLA, anicteric sclera, conjunctiva normal, thick short neck, clear nares, moist mucous membranes, RESP: lungs are clear to auscultation bilaterally, good AE bilaterally, No crackles or wheeze CARDIO: normal heart sounds, RRR with no murmurs, GI: Soft, full, no tenderness, no organomegaly felt, normal bowel sounds heard MUSCULOSKELETAL: bilateral lower extremity swelling but left>right, few areas of folliculitis on the LLE with reddened patch that is warm to touch and tender NEUROLOGIC: CN 2-12 intact grossly. No motor/sensory deficit appreciated, PSYCHIATRY: AAO x 3. Mood is fair, SKIN: bilateral lower extremity darkened areas and discoloration Internal Med - H&P Results - Labs CBC & Chem 7: 10/28/16 19:31 10/28/16 19:31 - Diagnostic Studies Venous US Status: image reviewed by me (ALANNA)
[2016-10-28] MEDS ORDERED: Naloxone 0.4 MG/ML INJ IVP PRN (22:50)
[2016-10-28] MEDS ORDERED: Nitroglycerin 0.4 MG TAB.SUBL SL PRN (22:51)
[2016-10-28] MEDS: Ibuprofen 400 MG TABLET PO PRN (23:20)
[2016-10-28] MEDS: *HR* Heparin 5,000 UNIT/ML VIAL SQ SCH (23:21)
[2016-10-29] MEDS: *HR* OxyCODONE Immed Rel 5 MG TABLET PO PRN ×2 (01:06→11:33)
[2016-10-29] MEDS ORDERED: *HR* Morphine 2 MG/ML SYRINGE IVP ONE (04:19)
[2016-10-29 04:39] LABS: Basophils % 0.2 %; Eosinophils # 0.4 K/mcL (0.0-0.6); Eosinophils % 6.5 %; Hematocrit 38.6 % (37.5-50.1); Hemoglobin 12.7 g/dL (12.9-16.9); Immature Granulocytes % 0.4 % (0-4); Lymphocytes # 1.3 K/mcL (0.6-4.6); Lymphocytes % 23.2 %; Mean Corpuscular HGB Conc 32.9 g/dL (31.6-35.5); Mean Corpuscular Volume 85.2 fL (83.0-100.0); Mean Platelet Volume 11.6 fL (9.4-12.4); Monocytes # 0.6 K/mcL (0.0-1.3); Monocytes % 11.3 %; Neutrophils # 3.2 K/mcL (1.6-8.9); Platelet Count 148 K/mcL (140-400); Red Blood Count 4.53 M/mcL (4.19-5.50); Red Cell Distribution Width 14.6 % (11.5-14.5); Segmented Neutrophils % 58.4 %
[2016-10-29 04:54] LABS: BUN/Creatinine Ratio 13 (6-26); Blood Urea Nitrogen 11 mg/dL (8-26); Calcium 8.8 mg/dL (8.6-10.8); Carbon Dioxide 27 mEq/L (19-29); Chloride 106 mEq/L (98-109); Glucose 125 mg/dL (70-99); Magnesium 1.9 mg/dL (1.6-2.6); Osmolality,Calculated 291 (280-300); Phosphorous 4.1 mg/dL (2.3-4.7); Potassium 3.7 mEq/L (3.5-4.5); Sodium 140 mEq/L (136-145); eGFR For African Americans > 60 (> 60); eGFR For Non-African Americans > 60 (> 60)
[2016-10-29] MEDS: Ampicillin/Sulbactam 3,000 MG in 0.9 % Sodium Chloride Mini Bag 100 ML IVPB SCH ×4 (05:47→23:49)
[2016-10-29] MEDS: *HR* Heparin 5,000 UNIT/ML VIAL SQ SCH ×3 (05:48→21:24)
[2016-10-29] MEDS ORDERED: Vancomycin 1,000 MG in D5% in Water 250 ML IVPB SCH (06:00)
[2016-10-29] MEDS ORDERED: Vancomycin 2,000 MG in D5% in Water 500 ML IVPB SCH (06:00)
[2016-10-29] MEDS ORDERED: POTASSIUM 99 MG PO SCH (09:00)
[2016-10-29] MEDS: Famotidine 20 MG TABLET PO SCH ×2 (09:03→15:52)
[2016-10-29] MEDS: Isosorbide MONOnitrate (24 HR) 60 MG TAB.ER.24H PO SCH (09:03)
[2016-10-29] MEDS: Lactobacillus 1 EACH CAP.SPRINK PO SCH (09:03)
[2016-10-29] MEDS: hydroCHLOROthiazide 25 MG TABLET PO SCH (09:03)
[2016-10-29] MEDS: Multivit/Ca/Min/Fe/FA 1 TAB TABLET PO SCH (09:03)
--- NOTE | 2016-10-29 13:36 | Venous Imaging Report ---
LE Venous Duplex Patient Name:Rolf Herzog Order Number:[id number] Procedure Date:10/28/2016 Date:1965Age:51 yrs Gender:Male Location:[facility] ED Room #: ER16 Normalizer:Luzma Roldan Referring MD:Frank Kim DO mask layout designer:Beka Young M.D. Reading MD:Silas Kulkarni MD Primary Indications:LLE swelling, HX venous stripping bilaterally Secondary Indications: Risk Factors Yes/No Anticoagulants Yes Impressions: Bilateral lower extremity: normal deep exam.Lower extremity abnormal superficial exam: left great saphenous AK and great saphenous BK demonstrates acute thrombosis. Abnormal superficial exam: Left GSV thrombosis c/w successful ablalation. Recommendations: After imaging the patient returned to their room. Gave vascular preliminary results to Frank Kim in emergency department on 10/28/2016 at 20:40. Test completed on 10/28/2016 at 8:29:00 pm. Findings Venous Duplex Results: Right: Venous imaging of the lower extremity reveals full patency and normal vessel compressibility of the right distal iliac, right common femoral, right superficial femoral, right popliteal, right posterior tibial, right peroneal, right proximal great saphenous above knee, right mid great saphenous above knee, right distal great saphenous above knee, right lesser saphenous, right distal great saphenous below knee, right mid great saphenous below knee and right proximal great saphenous below knee. Doppler signals in the evaluated veins were normal. Left: Venous imaging of the lower extremity reveals full patency and normal vessel compressibility of the left distal iliac, left common femoral, left superficial femoral, left popliteal, left posterior tibial, left peroneal, left proximal great saphenous above knee, left distal great saphenous below knee, left lesser saphenous, left mid great saphenous above knee and left mid great saphenous below knee. Doppler signals in the evaluated veins were normal. The left distal great saphenous above knee demonstrates an incompressible vein. Flow was absent. It has been ablated. The left proximal great saphenous below knee demonstrates an incompressible vein. Flow was absent. It has been ablated. Lower Extremity Venous Duplex Side Vein Compress Spontaneous Flow Augment Diameter (cm) Depth (cm) Right Distal Iliac Normal yes Phasic yes Right Common Femoral Normal yes Phasic yes Right Superficial Femoral Normal yes Phasic yes Right Popliteal Normal yes Phasic yes Right Posterior Tibial Normal yes Phasic yes Right Peroneal Normal yes Phasic yes Right Great Saphenous AK Normal yes Phasic yes Right Great Saphenous AK Normal yes Phasic yes Right Great Saphenous AK Normal yes Phasic yes Left Distal Iliac Normal yes Phasic yes Left Common Femoral Normal yes Phasic yes Left Superficial Femoral Normal yes Phasic yes Left Popliteal Normal yes Phasic yes Left Posterior Tibial Normal yes Phasic yes Left Peroneal Normal yes Phasic yes Left Great Saphenous AK Normal yes Phasic yes Left Great Saphenous BK Normal yes Phasic yes Left Lesser Saphenous Normal yes Phasic yes Right Lesser Saphenous Normal yes Phasic yes Right Great Saphenous BK Normal yes Phasic yes Right Great Saphenous BK Normal yes Phasic yes Right Great Saphenous BK Normal yes Phasic yes Left Great Saphenous AK Normal yes Phasic yes Left Great Saphenous AK None no Absent Left Great Saphenous BK Normal yes Phasic yes Left Great Saphenous BK None no Absent Updated by Silas Kulkarni MD on 10/29/2016 1:31:59 PM electronically signed on 10/29/2016 1:32:21 PM with status of Final
--- NOTE | 2016-10-29 17:06 | Internal Med Progress Note ---
Date of Encounter: 10/29/16 Time of Encounter: 09:00 - Assessment and plan (1) Superficial vein thrombosis Current Visit: Yes Status: Acute Assessment and plan: patient had stripping surgery. we will consult vascular surgeon for further management. (2) HTN (hypertension) Current Visit: Yes Status: Chronic Assessment and plan: continue home medications Qualifiers: Hypertension type: essential hypertension Qualified Code(s): I10 - Essential (primary) hypertension (3) CAD (coronary artery disease) Current Visit: Yes Status: Chronic Assessment and plan: stable, continue home medications Qualifiers: Coronary Disease-Associated Artery/Lesion type: [place] artery [place] vs. transplanted heart: [place] heart Associated angina: without angina Qualified Code(s): I25.10 - Atherosclerotic heart disease of [place] coronary artery without angina pectoris (4) DVT prophylaxis Current Visit: No Status: Acute Assessment and plan: Heparin subcutaneously (5) Cellulitis Current Visit: Yes Status: Acute Assessment and plan: Will continue Vanco and Unysin treatment. Leg elevation. Patient is at high risk because he is on vancomycin. Need close monitoring. Qualifiers: Site of cellulitis: extremity Site of cellulitis of extremity: lower extremity Laterality: left Qualified Code(s): L03.116 - Cellulitis of left lower limb (6) Idiopathic chronic venous hypertension of both lower extremities with inflammation Current Visit: No Status: Acute Assessment and plan: Had stripping. Will consult vascular surgery. - Time Spent With Patient Greater than 35 minutes - Subjective Interval history: patient is a 51-year-old male admitted for cellulitis, failed outpatient by mouth antibiotic treatment. Past medical history significant for hypertension, CAD, B/L lower extremity varicose veins s/p multiple striping and ablation. Patient was seen and examined. still complaining of left-sided lower leg pain. With skin warmth and tenderness, and the redness. left lower leg swelling. we will continue vancomycin and Unasyn for cellulitis. ultrasound bilateral leg shows superficial vein thrombosis, we will consult vascular surgery. - Constitutional Vitals: Temp Pulse Resp BP Pulse Ox 97.9 F 71 18 139/80 96 10/29/16 14:31 10/29/16 14:31 10/29/16 14:31 10/29/16 14:31 10/29/16 14:31 General appearance: Present: A&O X 3, no acute distress, answers questions appropriately - Head Head exam: Present: atraumatic, normocephalic - Eye Eye exam: Present: PERRL, conjuntiva pink, sclera anicteric Pupils: Present: PERRL - Neck Neck exam general surgery: Present: supple, trachea midline. Absent: lymphadenopathy - Respiratory Respiratory exam: Present: CTAB. Absent: accessory muscle use, rales, rhonchi, wheezes - Cardiovascular Cardiovascular exam: Present: RRR, +S1, +S2. Absent: diastolic murmur, gallop, rubs, systolic murmur - GI/Abdominal GI/Abdominal exam: Present: normal bowel sounds, soft, no peritoneal signs. Absent: distended, tenderness - Extremities Exam Extremities exam: Present: warm, radial pulses palpable and symetrical. Absent : calf tenderness, cyanotic, pedal edema - Neurological Exam Neurological exam: Present: CN II-XII intact, oriented X3, no focal deficits. Absent: pronater drift, facial droop, speech deficit - Skin Skin exam: Present: dry, intact Internal Medicine: Result - Labs CBC & Chem 7: 10/29/16 03:59 10/29/16 03:59 Labs: Short CBC 10/29/16 Range/Units 03:59 WBC 5.4 (4.3-11.1) K/mcL Hgb 12.7 L (12.9-16.9) g/dL Hct 38.6 (37.5-50.1) % Plt Count 148 (140-400) K/mcL Neutrophils # 3.2 (1.6-8.9) K/mcL BMP 10/29/16 03:59 Sodium 140 Potassium 3.7 Chloride 106 Carbon Dioxide 27 BUN 11 Creatinine 0.83 Glucose 125 H Calcium 8.8 - ABG Interpretation ABG results: PT/INR, D-dimer PT 11.3 Seconds (9.4-12.1) 10/28/16 19:31 Consult Discharge Plan - Plan Referrals: Beka Young MD [Primary Care Provider] -
[2016-10-29] MEDS: *HR* Morphine 2 MG/ML SYRINGE IVP PRN ×2 (17:38→23:49)
[2016-10-29] MEDS: Aspirin Enteric Coated 81 MG Tablet PO SCH (17:38)
[2016-10-29] MEDS: Loratadine 10 MG TABLET PO SCH (17:38)
[2016-10-29] MEDS: Vancomycin 1,750 MG in D5% in Water 500 ML IVPB SCH (17:41)
--- NOTE | 2016-10-29 18:39 | Vascular/End[facility]as Progress Note ---
Date of Encounter: 10/29/16 Time of Encounter: 17:00 - Assessment and plan (1) Cellulitis Current Visit: Yes Status: Acute The patient has developed a left lateral and posterior calf cellulitis. There are no associated incisions near this region. He has a history of recurrent epsiodes of leg cellulitis that has been occurring for years. He has recently been on antibiotics. He denies any purulent drainage. Recommend continued antibiotic therapy. Consider infections disease consultation due to his recurrent episodes of cellulitis. Qualifiers: Site of cellulitis: extremity Site of cellulitis of extremity: lower extremity Laterality: left Qualified Code(s): L03.116 - Cellulitis of left lower limb (2) Idiopathic chronic venous hypertension of both lower extremities with inflammation Current Visit: Yes Status: Chronic Vital Signs, Last 4 Hours Temp Pulse Resp BP Pulse Ox 10/29/16 18:31 98.4 F 73 18 130/76 95 Results 10/31/16 04:36 10/31/16 04:36 Lab Results, Last 24 hours 10/29/16 10/29/16 03:59 03:59 WBC 5.4 Hgb 12.7 L Hct 38.6 Plt Count 148 Sodium 140 Potassium 3.7 Chloride 106 Carbon Dioxide 27 BUN 11 Creatinine 0.83 Glucose 125 H Calcium 8.8 Magnesium 1.9 Consult Discharge Plan - Plan Referrals: Beka Young MD [Primary Care Provider] -
[2016-10-30] MEDS: *HR* Heparin 5,000 UNIT/ML VIAL SQ SCH ×3 (06:18→21:45)
[2016-10-30] MEDS: Ampicillin/Sulbactam 3,000 MG in 0.9 % Sodium Chloride Mini Bag 100 ML IVPB SCH ×3 (06:18→18:23)
[2016-10-30] MEDS: Famotidine 20 MG TABLET PO SCH ×2 (06:18→16:01)
[2016-10-30] MEDS: Vancomycin 1,750 MG in D5% in Water 500 ML IVPB SCH ×2 (06:26→18:43)
[2016-10-30 06:28] LABS: Basophils % 0.4 %; Eosinophils # 0.4 K/mcL (0.0-0.6); Hematocrit 40.4 % (37.5-50.1); Hemoglobin 13.4 g/dL (12.9-16.9); Immature Granulocytes % 0.4 % (0-4); Lymphocytes # 1.3 K/mcL (0.6-4.6); Lymphocytes % 25.1 %; Mean Corpuscular HGB Conc 33.2 g/dL (31.6-35.5); Mean Corpuscular Hemoglobin 28.3 pg (28.0-33.3); Mean Corpuscular Volume 85.4 fL (83.0-100.0); Mean Platelet Volume 11.4 fL (9.4-12.4); Monocytes # 0.5 K/mcL (0.0-1.3); Monocytes % 10.5 %; Neutrophils # 2.9 K/mcL (1.6-8.9); Platelet Count 165 K/mcL (140-400); Red Blood Count 4.73 M/mcL (4.19-5.50); Red Cell Distribution Width 14.3 % (11.5-14.5); Segmented Neutrophils % 56.6 %
[2016-10-30 06:46] LABS: BUN/Creatinine Ratio 11 (6-26); Blood Urea Nitrogen 9 mg/dL (8-26); Carbon Dioxide 31 mEq/L (19-29); Chloride 101 mEq/L (98-109); Glucose 92 mg/dL (70-99); Osmolality,Calculated 286 (280-300); Potassium 3.9 mEq/L (3.5-4.5); Sodium 139 mEq/L (136-145); eGFR For African Americans > 60 (> 60); eGFR For Non-African Americans > 60 (> 60)
[2016-10-30] MEDS: Multivit/Ca/Min/Fe/FA 1 TAB TABLET PO SCH (09:05)
[2016-10-30] MEDS: Isosorbide MONOnitrate (24 HR) 60 MG TAB.ER.24H PO SCH (09:05)
[2016-10-30] MEDS: Lactobacillus 1 EACH CAP.SPRINK PO SCH (09:06)
[2016-10-30] MEDS: hydroCHLOROthiazide 25 MG TABLET PO SCH (09:06)
[2016-10-30] MEDS: *HR* Morphine 2 MG/ML SYRINGE IVP PRN (09:06)
--- NOTE | 2016-10-30 15:02 | Infectious Disease Consult ---
Date of Encounter: 10/30/16 Time of Encounter: 15:02 Assessment and Plan (1) Sepsis Status: Acute Assessment and plan: Prior to admission patient had fever and tachycardia at home. Since admission patient has been afebrile no leukocytosis and hemodynamically stable. Qualifiers: Sepsis type: sepsis due to unspecified organism Qualified Code(s): A41.9 - Sepsis, unspecified organism (2) Cellulitis of left lower extremity without foot Status: Acute Assessment and plan: During my physical exam I did not appreciate any cellulitis, keep in mind patient has been on doxycycline and Bactrim since Friday and IV vancomycin and Unasyn since admission. Continues to have severe tenderness and warmth and bilateral lower extremity. Patient also has burning sensation Jean Baptiste had shingles before which he denied. No obvious organism was ever been identified. has been on multiple oral antibiotics regimen no obvious source (could be coming from tinea pedis. not sure if there is other sources of the erythema (venous stasis vs other) get CT lower exteremity, continue current antibiotics for now (3) Superficial vein thrombosis Status: Acute (4) Tinea pedis Status: Acute Assessment and plan: bilateral start lamisil x 2 weeks Qualifiers: Laterality: bilateral Qualified Code(s): B35.3 - Tinea pedis (5) CAD (coronary artery disease) Status: Chronic Qualifiers: Coronary Disease-Associated Artery/Lesion type: [place] artery [place] vs. transplanted heart: [place] heart Associated angina: without angina Qualified Code(s): I25.10 - Atherosclerotic heart disease of [place] coronary artery without angina pectoris (6) GERD (gastroesophageal reflux disease) Status: Chronic Qualifiers: Esophagitis presence: without esophagitis Qualified Code(s): K21.9 - Gastro -esophageal reflux disease without esophagitis (7) HTN (hypertension) Status: Chronic Qualifiers: Hypertension type: essential hypertension Qualified Code(s): I10 - Essential (primary) hypertension Infectious Disease HPI - Data of Consult Patient: new to practice Consult date: 10/30/16 Requesting Physician: Genaro Baird MD Primary Care Provider: Beka Young MD - Consult Narrative Reason for consult: Recurrent cellulitis History of present illness: Mr. Herzog is a 51 year old male Patient is a 48-year-old gentleman admitted to [facility] on 10/28/2016 with left lower extremity swelling, we are consulted on 10/30/2016 for recurrent cellulitis of the left lower extremity. Patient 51-year-old gentleman with past medical history mentioned below including hypertension, coronary artery disease and GERD with recent history of lower extremity varicose vein status post multiple stripping and ablation. Patient apparently a few days prior to admission started noticing swelling of his left lower extremity. It had a red patch the posterior lateral area of the leg with throbbing pain was 6 out of 10 in severity. Patient states the pain was nonradiating pain was worse with movement and touch and the area was warm. Patient was evaluated and was started on Bactrim on Friday so he presented to the emergency department because his symptoms did not improve. 10/14/15: Admitted with cellulitis of left lower extremity treated with Zosyn and vancomycin while inpatient, discharged home on doxycycline cultures negative at that time. 09/27/2016: Has varicose veins removed. 10/14/16: Admitted to [facility] with right lower leg cellulitis. At that time he failed outpatient treatment with Keflex, was given vancomycin during the admission and was discharged on doxycycline. Cultures at that time were also negative. Since admission patient has been afebrile, heart rate has been within normal limit, respiratory rate within normal limits, blood pressure stable. Presenting WBC was 7.3 with normal differential. Rest of the labs were unremarkable. Blood cultures were obtained on 10/28/16 and are no growth to date. Ultrasound of lower extremities were done which showed bilateral lower extremity normal deep exam. Lower extremity abnormal superficial exam. Left great saphenous AK and great saphenous BK demonstrates acute thrombosis. Abnormal superficial exam left GSV be thrombosis. CC: Genaro Baird MD Past Med Surg Social Fam HX - Past Medical History Medical history: hyperlipidemia, hypertension, myocardial infarction, other ( BLE varicose veins, morbid obesity) Psychiatric history: no psych history - Past Surgical History Surgical History: angioplasty/stent, appendectomy, other (vein stripping and ablation) - Social History Smoking Status: Never smoker Smokeless Tobacco Status: No Alcohol use: none Drug use: none - Family History Father Living Status: Still Living Hx Family Cardiac Disorders: Yes (CHF, CABG) Infectious Disease-CN:Meds Atenolol [Tenormin] 75 mg PO DAILY #0 03/31/15 [History] Atorvastatin Calcium [Lipitor] 80 mg PO HS #0 03/31/15 [History] Clopidogrel [Plavix] 75 mg PO DAILY #0 03/31/15 [History] Famotidine [Pepcid] 20 mg PO BID #0 03/31/15 [History] hydroCHLOROthiazide [Hydrochlorothiazide] 25 mg PO DAILY #0 03/31/15 [History] Aspirin Enteric Coated [Aspirin EC] 81 mg PO QPM 11/03/15 [History] Multivitamin [Multivitamins] 1 tab PO DAILY 11/03/15 [History] Potassium 99 mg PO DAILY 11/03/15 [History] Albuterol Sulfate [Albuterol Inhaler] 2 puff IH Q4HR PRN 08/13/16 [History] Cetirizine HCl [Zyrtec] 10 mg PO QPM 08/13/16 [History] Cyclobenzaprine HCl 5 mg PO DAILY PRN 08/13/16 [History] Isosorbide MONOnitrate (24 HR) [Imdur] 60 mg PO DAILY 08/13/16 [History] Nitroglycerin [Nitrostat] 0.4 mg SL Q5M PRN 08/13/16 [History] Pantoprazole Sodium [Protonix] 40 mg PO QPM 08/13/16 [History] Acetaminophen [Tylenol] 1,000 mg PO Q6HR PRN #0 tablet 09/23/16 [Rx] Doxycycline 100 mg PO BID #10 capsule 10/17/16 [Rx] Sulfamethoxazole/Trimeth DS [Bactrim DS] 1 tab PO BID 10/28/16 [History] Allergies No Known Allergies Allergy (Verified 10/14/16 10:08) Review of systems: 10 point review of systems done, negative other for what mentioned in history of present illness. Exam - Constitutional Vitals: Temp Pulse Resp BP Pulse Ox 98.2 F 80 18 109/55 93 10/30/16 14:31 10/30/16 14:31 10/30/16 14:31 10/30/16 14:31 10/30/16 14:31 General appearance: cooperative, no acute distress - Head Head exam: Present: atraumatic, normocephalic - Eye Eye exam: Present: EOMI, PERRL, sclera anicteric - Neck Neck exam: Present: full ROM, normal inspection - Respiratory Respiratory exam: Present: CTAB. Absent: wheezes - Cardiovascular Cardiovascular exam: Present: RRR, +S1, +S2 - GI/Abdominal GI/Abdominal exam: Present: normal bowel sounds, soft. Absent: tenderness - Extremities Exam Additional comments: Bilateral lower extremities with venous stasis like picture. Scars in the right lower extremity from recent previous surgery. Patient is no apparent erythema or cellulitis right picture at this time. Although both lower extremities are very tender to touch and warm. So patient has tenderness and warmth but no obvious erythema. Patient also has tenia pedis interdigitally - Neurological Exam Neurological exam: Present: alert, oriented X3. Absent: no focal deficits - Psychiatric Psychiatric exam: Present: normal affect, normal mood Infectious Disease CN: Results - Labs CBC & Chem 7: 10/31/16 04:36 10/31/16 04:36 Consult Discharge Plan - Plan Referrals: Beka Young MD [Primary Care Provider] - 11/07/16 2:15 pm
--- NOTE | 2016-10-30 15:52 | Internal Med Progress Note ---
Date of Encounter: 10/30/16 Time of Encounter: 10:00 - Assessment and plan (1) Cellulitis Current Visit: Yes Status: Acute Assessment and plan: Will continue Vanco and Unysin treatment. Leg elevation. Consult ID for recurrent cellulitis. Patient is at high risk because he is on vancomycin. Need close monitoring. Qualifiers: Site of cellulitis: extremity Site of cellulitis of extremity: lower extremity Laterality: left Qualified Code(s): L03.116 - Cellulitis of left lower limb (2) HTN (hypertension) Current Visit: Yes Status: Chronic Assessment and plan: continue home medications Qualifiers: Hypertension type: essential hypertension Qualified Code(s): I10 - Essential (primary) hypertension (3) CAD (coronary artery disease) Current Visit: Yes Status: Chronic Assessment and plan: stable, continue home medications Qualifiers: Coronary Disease-Associated Artery/Lesion type: [place] artery [place] vs. transplanted heart: [place] heart Associated angina: without angina Qualified Code(s): I25.10 - Atherosclerotic heart disease of [place] coronary artery without angina pectoris (4) DVT prophylaxis Current Visit: No Status: Acute Assessment and plan: Heparin subcutaneously (5) Idiopathic chronic venous hypertension of both lower extremities with inflammation Current Visit: No Status: Acute Assessment and plan: Had stripping. Vascular surgery consult appreciated - Time Spent With Patient Greater than 35 minutes - Subjective Interval history: patient is a 51-year-old male admitted for cellulitis, failed outpatient by mouth antibiotic treatment. Past medical history significant for hypertension, CAD, B/L lower extremity varicose veins s/p multiple striping and ablation. Patient was seen and examined. still complaining of left-sided lower leg pain, but less after treatment. With skin warmth and tenderness, and the redness. left lower leg swelling. we will continue vancomycin and Unasyn for cellulitis. ultrasound bilateral leg shows superficial vein thrombosis, discussed with vascular surgery Dr Queen, the superficial thrombosis is expected after stripping surgery. ID consult called for recurrent cellulitis. - Constitutional Vitals: Temp Pulse Resp BP Pulse Ox 98.2 F 80 18 109/55 93 10/30/16 14:31 10/30/16 14:31 10/30/16 14:31 10/30/16 14:31 10/30/16 14:31 General appearance: Present: A&O X 3, no acute distress, answers questions appropriately - Head Head exam: Present: atraumatic, normocephalic - Eye Eye exam: Present: PERRL, conjuntiva pink, sclera anicteric Pupils: Present: PERRL - Neck Neck exam general surgery: Present: supple, trachea midline. Absent: lymphadenopathy - Respiratory Respiratory exam: Present: CTAB. Absent: accessory muscle use, rales, rhonchi, wheezes - Cardiovascular Cardiovascular exam: Present: RRR, +S1, +S2. Absent: diastolic murmur, gallop, rubs, systolic murmur - GI/Abdominal GI/Abdominal exam: Present: normal bowel sounds, soft, no peritoneal signs. Absent: distended, tenderness - Extremities Exam Extremities exam: Present: warm, radial pulses palpable and symetrical. Absent : calf tenderness, cyanotic, pedal edema Additional comments: Redness on Left LE - Neurological Exam Neurological exam: Present: CN II-XII intact, oriented X3, no focal deficits. Absent: pronater drift, facial droop, speech deficit - Skin Skin exam: Present: dry, intact Internal Medicine: Result - Labs CBC & Chem 7: 10/30/16 05:42 10/30/16 05:42 Labs: Short CBC 10/30/16 Range/Units 05:42 WBC 5.1 (4.3-11.1) K/mcL Hgb 13.4 (12.9-16.9) g/dL Hct 40.4 (37.5-50.1) % Plt Count 165 (140-400) K/mcL Neutrophils # 2.9 (1.6-8.9) K/mcL BMP 10/30/16 05:42 Sodium 139 Potassium 3.9 Chloride 101 Carbon Dioxide 31 H BUN 9 Creatinine 0.83 Glucose 92 Calcium 9.0 - ABG Interpretation ABG results: PT/INR, D-dimer PT 11.3 Seconds (9.4-12.1) 10/28/16 19:31 Consult Discharge Plan - Plan Referrals: Beka Young MD [Primary Care Provider] -
[2016-10-30] MEDS: Ibuprofen 400 MG TABLET PO PRN (16:16)
[2016-10-30] MEDS: Loratadine 10 MG TABLET PO SCH (18:22)
[2016-10-30] MEDS: Aspirin Enteric Coated 81 MG Tablet PO SCH (18:23)
[2016-10-30] MEDS: Vancomycin 2,000 MG in D5% in Water 500 ML IVPB SCH (19:40)
--- NOTE | 2016-10-30 21:51 | Vascular/[facility] Progress Note ---
Date of Encounter: 10/30/16 Time of Encounter: 16:50 - Assessment and plan (1) Cellulitis Current Visit: Yes Status: Acute The patient has developed recurrent left lateral and posterior calf cellulitis. He has improved slightly with antibiotics. Patient seen by infectious disease today. Qualifiers: Site of cellulitis: extremity Site of cellulitis of extremity: lower extremity Laterality: left Qualified Code(s): L03.116 - Cellulitis of left lower limb (2) Idiopathic chronic venous hypertension of both lower extremities with inflammation Current Visit: Yes Status: Chronic - Subjective Interval history: No acute issues. Reports decreased symptoms with antibiotics. No fevers or chills. - Physical Examination General: Present: Conversant Cardiac: Present: Reg Rate and Rhythm Neuro: Present: Alert and responsive Vascular: Present: Normal capillary refill, Surgical incisions (healing well) Skin: Present: Other (erythema at left calf) Results 10/31/16 04:36 10/31/16 04:36 Lab Results, Last 24 hours 10/30/16 10/30/16 05:42 05:42 WBC 5.1 Hgb 13.4 Hct 40.4 Plt Count 165 Sodium 139 Potassium 3.9 Chloride 101 Carbon Dioxide 31 H BUN 9 Creatinine 0.83 Glucose 92 Calcium 9.0 Consult Discharge Plan - Plan Referrals: Beka Young MD [Primary Care Provider] - 11/07/16 2:15 pm
[2016-10-31] MEDS: Ampicillin/Sulbactam 3,000 MG in 0.9 % Sodium Chloride Mini Bag 100 ML IVPB SCH ×4 (00:11→18:53)
[2016-10-31] MEDS: *HR* Morphine 2 MG/ML SYRINGE IVP PRN (03:52)
[2016-10-31 05:12] LABS: Basophils % 0.4 %; Hematocrit 38.9 % (37.5-50.1); Hemoglobin 12.9 g/dL (12.9-16.9); Immature Granulocytes % 0.2 % (0-4); Mean Corpuscular HGB Conc 33.2 g/dL (31.6-35.5); Mean Corpuscular Volume 84.4 fL (83.0-100.0); Mean Platelet Volume 11.2 fL (9.4-12.4); Monocytes % 12.5 %; Platelet Count 165 K/mcL (140-400); Red Blood Count 4.61 M/mcL (4.19-5.50); Red Cell Distribution Width 14.2 % (11.5-14.5); Segmented Neutrophils % 51.9 %
[2016-10-31 05:13] LABS: Eosinophils # 0.3 K/mcL (0.0-0.6); Lymphocytes # 1.4 K/mcL (0.6-4.6); Monocytes # 0.6 K/mcL (0.0-1.3); Neutrophils # 2.6 K/mcL (1.6-8.9)
[2016-10-31 05:31] LABS: BUN/Creatinine Ratio 12 (6-26); Blood Urea Nitrogen 9 mg/dL (8-26); Calcium 8.8 mg/dL (8.6-10.8); Carbon Dioxide 29 mEq/L (19-29); Chloride 103 mEq/L (98-109); Glucose 99 mg/dL (70-99); Osmolality,Calculated 289 (280-300); Potassium 3.9 mEq/L (3.5-4.5); Sodium 140 mEq/L (136-145); eGFR For African Americans > 60 (> 60); eGFR For Non-African Americans > 60 (> 60)
[2016-10-31] MEDS: *HR* Heparin 5,000 UNIT/ML VIAL SQ SCH ×3 (05:40→21:33)
[2016-10-31] MEDS: Famotidine 20 MG TABLET PO SCH ×2 (07:45→18:24)
[2016-10-31] MEDS: Vancomycin 2,000 MG in D5% in Water 500 ML IVPB SCH ×2 (07:45→21:33)
[2016-10-31] MEDS: Ibuprofen 400 MG TABLET PO PRN (07:45)
[2016-10-31] MEDS: Isosorbide MONOnitrate (24 HR) 60 MG TAB.ER.24H PO SCH (07:45)
[2016-10-31] MEDS: Multivit/Ca/Min/Fe/FA 1 TAB TABLET PO SCH (07:46)
[2016-10-31] MEDS: Lactobacillus 1 EACH CAP.SPRINK PO SCH (07:46)
[2016-10-31] MEDS: hydroCHLOROthiazide 25 MG TABLET PO SCH (07:46)
--- NOTE | 2016-10-31 15:29 | Infectious Disease Progress No ---
Date of Encounter: 10/31/16 Time of Encounter: 15:27 - Assessment and Plan (1) Cellulitis Current Visit: Yes Status: Acute Location: Left lower extremity, posterior and lateral calf. Causative organism unclear. Recurrent per the patient's history. Has failed outpatient antibiotic therapy in the past requiring admission and IV antibiotic therapy. Recurrence is likely secondary to underlying venous insufficiency and BLE edema. Blood cultures drawn on admission are NGTD x 2 sets. Venous doppler negative for deep vein thrombosis, but does show acute thrombosis in the left great saphenous AK and left great saphenous BK. Recommend having the patient wear compression stockings during awake hours if okay with the vascular team. Get CT of the LLE to evaluate for abscess. Continue Vancomycin IV for now. Pharmacy to dose. Goal trough approximately 15. Continue Unasyn 3 grams IV Q6H for now as well. Duration of treatment depends on the clinical picture. Monitor renal function and dose-adjust antibiotics. Qualifiers: Site of cellulitis: extremity Site of cellulitis of extremity: lower extremity Laterality: left Qualified Code(s): L03.116 - Cellulitis of left lower limb (2) Superficial vein thrombosis Current Visit: Yes Status: Acute Status post BLE venous dopplers that revealed acute thrombosis in the great saphenous AK and BK vein. No DVT noted. (3) Tinea pedis Current Visit: Yes Status: Acute Location: bilateral feet. Possibly contributing to the patient's recurrent cellulitis. Discussed the importance of good foot hygiene (changing socks frequently, replacing insoles of boots, keeping feet dry, etc.) Start lamisil. Apply between the toes once a day for at least 1 week. Qualifiers: Laterality: bilateral Qualified Code(s): B35.3 - Tinea pedis (4) HTN (hypertension) Current Visit: Yes Status: Chronic Qualifiers: Hypertension type: essential hypertension Qualified Code(s): I10 - Essential (primary) hypertension (5) CAD (coronary artery disease) Current Visit: Yes Status: Chronic Qualifiers: Coronary Disease-Associated Artery/Lesion type: [place] artery [place] vs. transplanted heart: [place] heart Associated angina: without angina Qualified Code(s): I25.10 - Atherosclerotic heart disease of [place] coronary artery without angina pectoris (6) Idiopathic chronic venous hypertension of both lower extremities with inflammation Current Visit: Yes Status: Chronic Status post excision of symptomatic left lower extremity varicose vein clusters on 10/04/[address] Queen. Status post left greater saphenous vein and left accessory saphenous vein radiofrequency ablation 09/23/[address] Queen. (7) GERD (gastroesophageal reflux disease) Current Visit: Yes Status: Chronic Qualifiers: Esophagitis presence: without esophagitis Qualified Code(s): K21.9 - Gastro -esophageal reflux disease without esophagitis - Subjective Interval history: Patient seen and examined. No acute events noted overnight. Patient resting in bed with the family at the bedside. States he feels okay today. Denies fevers, chills, or rigors. Denies chest pain or cough, but reports some orthopnea. Denies nausea, vomiting, or diarrhea. Reports last BM this morning. Denies urinary complaints. States the pain in his LLE is improved today, but still sore and the erythema seems to be improved as well. Denies oral thrush or new skin lesions. Infect Dis PN-Objective Data - Labs CBC & Chem 7: 10/31/16 04:36 10/31/16 04:36 Labs: Laboratory Results - last 24 hr 10/30/16 10/31/16 10/31/16 16:26 04:36 04:36 WBC 5.0 RBC 4.61 Hgb 12.9 Hct 38.9 MCV 84.4 MCH 28.0 MCHC 33.2 RDW 14.2 Plt Count 165 MPV 11.2 Immature Gran % 0.2 Seg Neutrophils % 51.9 Lymphocytes % 29.0 Monocytes % 12.5 Eosinophils % 6.0 Basophils % 0.4 Neutrophils # 2.6 Lymphocytes # 1.4 Monocytes # 0.6 Eosinophils # 0.3 Basophils # 0.0 Sodium 140 Potassium 3.9 Chloride 103 Carbon Dioxide 29 BUN 9 Creatinine 0.76 Est GFR ( Amer) > 60 Est GFR (Non-Af Amer) > 60 BUN/Creatinine Ratio 12 Glucose 99 Calculated Osmolality 289 Calcium 8.8 Vancomycin Trough 10.8 Exam - Constitutional Vitals: Temp Pulse Resp BP Pulse Ox 97.9 F 95 18 132/81 100 10/31/16 11:10 10/31/16 11:10 10/31/16 11:10 10/31/16 11:10 10/31/16 11:10 General appearance: cooperative, morbidly obese, no acute distress - Head Head exam: Present: atraumatic, normal inspection, normocephalic - Eye Eye exam: Present: EOMI, normal appearance, PERRL Pupils: Present: normal accommodation - ENT ENT exam: Present: mucous membranes moist - Neck Neck exam: Present: normal inspection - Respiratory Respiratory exam: Present: CTAB. Absent: rales, respiratory distress, rhonchi, wheezes - Cardiovascular Cardiovascular exam: Present: RRR, +S1, +S2 - GI/Abdominal GI/Abdominal exam: Present: distended (obese), normal bowel sounds, soft. Absent: tenderness - Extremities Exam Extremities exam: Present: pedal edema (2+ edema BLE), tenderness (left posterior calf). Absent: joint swelling Additional comments: Bilateral LE venous stasis dermatitis noted. Tenderness and very mild warmth noted to the posterior and lateral aspect of the left calf. No erythema noted at this time. Skin changes consistent with tinea pedis noted to the web space in between the toes on bilateral feet. - Neurological Exam Neurological exam: Present: alert, oriented X3, no focal deficits - Psychiatric Psychiatric exam: Present: normal affect, normal mood - Skin Skin exam: Present: dry, intact, normal color, warm Consult Discharge Plan - Plan Referrals: Beka Young MD [Primary Care Provider] - 11/07/16 2:15 pm - Attending Attestation I examined this patient and my medical decision-making was reviewed with the BUS INFO CONSULTANT/PA/Advanced Practice Nurse/Resident Physician. I agree with the documented findings, disposition and treatment plan as described except to the extent set forth below.
--- NOTE | 2016-10-31 17:15 | Internal Med Progress Note ---
Date of Encounter: 10/31/16 Time of Encounter: 10:00 - Assessment and plan (1) Cellulitis Current Visit: Yes Status: Acute Assessment and plan: Will continue Vanco and Unysin treatment. Leg elevation. ID consult appreciated. CT LE to r/o abscess. Patient is at high risk because he is on vancomycin. Need close monitoring. Qualifiers: Site of cellulitis: extremity Site of cellulitis of extremity: lower extremity Laterality: left Qualified Code(s): L03.116 - Cellulitis of left lower limb (2) HTN (hypertension) Current Visit: Yes Status: Chronic Assessment and plan: continue home medications Qualifiers: Hypertension type: essential hypertension Qualified Code(s): I10 - Essential (primary) hypertension (3) CAD (coronary artery disease) Current Visit: Yes Status: Chronic Assessment and plan: stable, continue home medications Qualifiers: Coronary Disease-Associated Artery/Lesion type: [place] artery [place] vs. transplanted heart: [place] heart Associated angina: without angina Qualified Code(s): I25.10 - Atherosclerotic heart disease of [place] coronary artery without angina pectoris (4) DVT prophylaxis Current Visit: No Status: Acute Assessment and plan: Heparin subcutaneously (5) Idiopathic chronic venous hypertension of both lower extremities with inflammation Current Visit: Yes Status: Chronic Assessment and plan: Had stripping. Vascular surgery consult appreciated - Time Spent With Patient Greater than 35 minutes - Subjective Interval history: patient is a 51-year-old male admitted for cellulitis, failed outpatient by mouth antibiotic treatment. Past medical history significant for hypertension, CAD, B/L lower extremity varicose veins s/p multiple striping and ablation. Patient was seen and examined. still complaining of left-sided lower leg pain, but less with abx treatment. With skin warmth and tenderness. redness slightly improved. Vascular and ID consult appreciated. Will order CT LE and continue vanco and unasyn. - Constitutional Vitals: Temp Pulse Resp BP Pulse Ox 98.0 F 71 20 118/71 94 10/31/16 15:58 10/31/16 15:58 10/31/16 15:58 10/31/16 15:58 10/31/16 15:58 General appearance: Present: A&O X 3, no acute distress, answers questions appropriately - Head Head exam: Present: atraumatic, normocephalic - Eye Eye exam: Present: PERRL, conjuntiva pink, sclera anicteric Pupils: Present: PERRL - Neck Neck exam general surgery: Present: supple, trachea midline. Absent: lymphadenopathy - Respiratory Respiratory exam: Present: CTAB. Absent: accessory muscle use, rales, rhonchi, wheezes - Cardiovascular Cardiovascular exam: Present: RRR, +S1, +S2. Absent: diastolic murmur, gallop, rubs, systolic murmur - GI/Abdominal GI/Abdominal exam: Present: normal bowel sounds, soft, no peritoneal signs. Absent: distended, tenderness - Extremities Exam Extremities exam: Present: warm, radial pulses palpable and symetrical. Absent : calf tenderness, cyanotic, pedal edema - Neurological Exam Neurological exam: Present: CN II-XII intact, oriented X3, no focal deficits. Absent: pronater drift, facial droop, speech deficit - Skin Skin exam: Present: dry, intact Internal Medicine: Result - Labs CBC & Chem 7: 10/31/16 04:36 10/31/16 04:36 Labs: Short CBC 10/31/16 Range/Units 04:36 WBC 5.0 (4.3-11.1) K/mcL Hgb 12.9 (12.9-16.9) g/dL Hct 38.9 (37.5-50.1) % Plt Count 165 (140-400) K/mcL Neutrophils # 2.6 (1.6-8.9) K/mcL BMP 10/31/16 04:36 Sodium 140 Potassium 3.9 Chloride 103 Carbon Dioxide 29 BUN 9 Creatinine 0.76 Glucose 99 Calcium 8.8 - ABG Interpretation ABG results: PT/INR, D-dimer PT 11.3 Seconds (9.4-12.1) 10/28/16 19:31 Consult Discharge Plan - Plan Referrals: Beka Young MD [Primary Care Provider] - 11/07/16 2:15 pm
--- NOTE | 2016-10-31 17:35 | Vascular/[facility] Progress Note ---
Date of Encounter: 10/31/16 Time of Encounter: 16:50 - Assessment and plan (1) Cellulitis Current Visit: Yes Status: Acute The patient has developed recurrent left lateral and posterior calf cellulitis. He has continued improvement with intravenous antibiotics. Will likely be discharged soon on oral antibiotics. Qualifiers: Site of cellulitis: extremity Site of cellulitis of extremity: lower extremity Laterality: left Qualified Code(s): L03.116 - Cellulitis of left lower limb (2) Idiopathic chronic venous hypertension of both lower extremities with inflammation Current Visit: Yes Status: Chronic - Subjective Interval history: He reports he is feeling better, decreased pain. He denies fevers or chills. Vital Signs, Last 4 Hours Temp Pulse Resp BP Pulse Ox 10/31/16 15:58 98.0 F 71 20 118/71 94 - Physical Examination Skin: Present: Other (no drainge, decreased erythema at left lower extremity, no surgical incision involvement.) Results 10/31/16 04:36 10/31/16 04:36 Lab Results, Last 24 hours 10/31/16 10/31/16 04:36 04:36 WBC 5.0 Hgb 12.9 Hct 38.9 Plt Count 165 Sodium 140 Potassium 3.9 Chloride 103 Carbon Dioxide 29 BUN 9 Creatinine 0.76 Glucose 99 Calcium 8.8 Consult Discharge Plan - Plan Referrals: Beka Young MD [Primary Care Provider] - 11/07/16 2:15 pm
[2016-10-31] MEDS: 0.9 % Sodium Chloride 1,000 ML IVC SCH (18:51)
[2016-10-31] MEDS: Aspirin Enteric Coated 81 MG Tablet PO SCH (18:57)
[2016-10-31] MEDS: Loratadine 10 MG TABLET PO SCH (18:57)
[2016-10-31] MEDS: Clotrimazole 1% CRM 15 GM TUBE TP SCH (21:34)
[2016-11-01] MEDS: Ampicillin/Sulbactam 3,000 MG in 0.9 % Sodium Chloride Mini Bag 100 ML IVPB SCH ×4 (00:16→17:56)
[2016-11-01] MEDS: *HR* OxyCODONE Immed Rel 5 MG TABLET PO PRN (02:09)
[2016-11-01] MEDS: *HR* Heparin 5,000 UNIT/ML VIAL SQ SCH ×3 (06:07→20:35)
[2016-11-01] MEDS: 0.9 % Sodium Chloride 1,000 ML IVC SCH (06:07)
[2016-11-01 06:30] LABS: Basophils % 0.6 %; Eosinophils # 0.3 K/mcL (0.0-0.6); Eosinophils % 5.6 %; Hematocrit 40.5 % (37.5-50.1); Hemoglobin 13.2 g/dL (12.9-16.9); Immature Granulocytes % 0.4 % (0-4); Lymphocytes # 1.7 K/mcL (0.6-4.6); Lymphocytes % 33.1 %; Mean Corpuscular HGB Conc 32.6 g/dL (31.6-35.5); Mean Corpuscular Hemoglobin 27.7 pg (28.0-33.3); Mean Corpuscular Volume 85.1 fL (83.0-100.0); Mean Platelet Volume 10.8 fL (9.4-12.4); Monocytes # 0.5 K/mcL (0.0-1.3); Monocytes % 9.1 %; Neutrophils # 2.7 K/mcL (1.6-8.9); Platelet Count 165 K/mcL (140-400); Red Blood Count 4.76 M/mcL (4.19-5.50); Segmented Neutrophils % 51.2 %
[2016-11-01 06:46] LABS: BUN/Creatinine Ratio 13 (6-26); Blood Urea Nitrogen 9 mg/dL (8-26); Calcium 8.9 mg/dL (8.6-10.8); Carbon Dioxide 26 mEq/L (19-29); Chloride 104 mEq/L (98-109); Glucose 94 mg/dL (70-99); Osmolality,Calculated 284 (280-300); Potassium 4.1 mEq/L (3.5-4.5); Sodium 138 mEq/L (136-145); eGFR For African Americans > 60 (> 60); eGFR For Non-African Americans > 60 (> 60)
[2016-11-01] MEDS: Vancomycin 2,000 MG in D5% in Water 500 ML IVPB SCH (08:36)
[2016-11-01] MEDS: Famotidine 20 MG TABLET PO SCH ×2 (08:36→17:52)
[2016-11-01] MEDS: Lactobacillus 1 EACH CAP.SPRINK PO SCH (10:03)
[2016-11-01] MEDS: Clotrimazole 1% CRM 15 GM TUBE TP SCH ×2 (10:04→20:36)
[2016-11-01] MEDS: Isosorbide MONOnitrate (24 HR) 60 MG TAB.ER.24H PO SCH (10:04)
[2016-11-01] MEDS: hydroCHLOROthiazide 25 MG TABLET PO SCH (10:04)
[2016-11-01] MEDS: Multivit/Ca/Min/Fe/FA 1 TAB TABLET PO SCH (10:06)
--- NOTE | 2016-11-01 11:46 | Infectious Disease Progress No ---
Date of Encounter: 11/01/16 Time of Encounter: 11:44 - Assessment and Plan (1) Cellulitis Current Visit: Yes Status: Acute Location: Left lower extremity, posterior and lateral calf. Causative organism unclear. Recurrent per the patient's history. Has failed outpatient antibiotic therapy in the past requiring admission and IV antibiotic therapy. Recurrence is likely secondary to underlying venous insufficiency and BLE edema. Blood cultures drawn on admission are NGTD x 2 sets. Venous doppler negative for deep vein thrombosis, but does show acute thrombosis in the left great saphenous AK and left great saphenous BK. Recommend having the patient wear compression stockings during awake hours if okay with the vascular team. BLE CT negative for acute infectious etiology to explain the patient's pain. Continue Vancomycin IV for now. Pharmacy to dose. Goal trough approximately 15. Continue Unasyn 3 grams IV Q6H for now as well. Duration of treatment depends on the clinical picture. Recommend a 14 day course. Can switch to PO Keflex when ready for discharge. Monitor renal function and dose-adjust antibiotics. Qualifiers: Site of cellulitis: extremity Site of cellulitis of extremity: lower extremity Laterality: left Qualified Code(s): L03.116 - Cellulitis of left lower limb (2) Superficial vein thrombosis Current Visit: Yes Status: Acute Status post BLE venous dopplers that revealed acute thrombosis in the great saphenous AK and BK vein. No DVT noted. (3) Tinea pedis Current Visit: Yes Status: Acute Location: bilateral feet. Possibly contributing to the patient's recurrent cellulitis. Discussed the importance of good foot hygiene (changing socks frequently, replacing insoles of boots, keeping feet dry, etc.) Start lamisil. Apply between the toes once a day for at least 1 week. Qualifiers: Laterality: bilateral Qualified Code(s): B35.3 - Tinea pedis (4) HTN (hypertension) Current Visit: Yes Status: Chronic Qualifiers: Hypertension type: essential hypertension Qualified Code(s): I10 - Essential (primary) hypertension (5) CAD (coronary artery disease) Current Visit: Yes Status: Chronic Qualifiers: Coronary Disease-Associated Artery/Lesion type: [place] artery [place] vs. transplanted heart: [place] heart Associated angina: without angina Qualified Code(s): I25.10 - Atherosclerotic heart disease of [place] coronary artery without angina pectoris (6) Idiopathic chronic venous hypertension of both lower extremities with inflammation Current Visit: Yes Status: Chronic Status post excision of symptomatic left lower extremity varicose vein clusters on 10/04/[address] Queen. Status post left greater saphenous vein and left accessory saphenous vein radiofrequency ablation 09/23/[address] Queen. (7) GERD (gastroesophageal reflux disease) Current Visit: Yes Status: Chronic Qualifiers: Esophagitis presence: without esophagitis Qualified Code(s): K21.9 - Gastro -esophageal reflux disease without esophagitis - Subjective Interval history: Patient seen and examined. No acute events noted overnight. Patient sitting up in the bedside chair. States he feels okay today. Denies fevers, chills, or rigors. Denies chest pain or cough, but reports some orthopnea. Denies nausea, vomiting, or diarrhea. Reports last BM yesterday. Denies urinary complaints. States the pain in his LLE is improved today, but still sore and the erythema seems to be improved as well. Denies oral thrush or new skin lesions. Infect Dis PN-Objective Data - Labs CBC & Chem 7: 11/01/16 06:01 11/01/16 06:01 Labs: Laboratory Results - last 24 hr 11/01/16 11/01/16 11/01/16 06:01 06:01 06:01 WBC 5.2 RBC 4.76 Hgb 13.2 Hct 40.5 MCV 85.1 MCH 27.7 L MCHC 32.6 RDW 14.0 Plt Count 165 MPV 10.8 Immature Gran % 0.4 Seg Neutrophils % 51.2 Lymphocytes % 33.1 Monocytes % 9.1 Eosinophils % 5.6 Basophils % 0.6 Neutrophils # 2.7 Lymphocytes # 1.7 Monocytes # 0.5 Eosinophils # 0.3 Basophils # 0.0 Sodium 138 Potassium 4.1 Chloride 104 Carbon Dioxide 26 BUN 9 Creatinine 0.71 L Est GFR ( Amer) > 60 Est GFR (Non-Af Amer) > 60 BUN/Creatinine Ratio 13 Glucose 94 Calculated Osmolality 284 Calcium 8.9 Vancomycin Trough 14.8 - Impressions Impressions Lower Extremity CT 10/31/16 15:55 IMPRESSION: 1. Diffuse bilateral lower extremity subcutaneous fat stranding and skin thickening compatible with cellulitis versus lymphedema. No drainable fluid collection. 2. No acute osseous abnormality. D/ / Gael Barr MD / Gael Barr MD Interpreting Provider: Gael Barr MD Lower Extremity CT 10/31/16 15:55 IMPRESSION: 1. Diffuse bilateral lower extremity subcutaneous fat stranding and skin thickening compatible with cellulitis versus lymphedema. No drainable fluid collection. 2. No acute osseous abnormality. D/ / Gael Barr MD / Gael Barr MD Interpreting Provider: Gael Barr MD Exam - Constitutional Vitals: Temp Pulse Resp BP Pulse Ox 97.8 F 76 18 131/78 94 11/01/16 10:56 11/01/16 10:56 11/01/16 10:56 11/01/16 10:56 11/01/16 10:56 General appearance: cooperative, morbidly obese, no acute distress - Head Head exam: Present: atraumatic, normal inspection, normocephalic - Eye Eye exam: Present: EOMI, normal appearance, PERRL Pupils: Present: normal accommodation - ENT ENT exam: Present: mucous membranes moist - Neck Neck exam: Present: normal inspection - Respiratory Respiratory exam: Present: CTAB. Absent: rales, respiratory distress, rhonchi, wheezes - Cardiovascular Cardiovascular exam: Present: RRR, +S1, +S2 - GI/Abdominal GI/Abdominal exam: Present: distended (obese), normal bowel sounds, soft. Absent: tenderness - Extremities Exam Extremities exam: Present: pedal edema (3+ LLE, 2+ RLE), tenderness (left posterio-lateral calf). Absent: joint swelling Additional comments: Bilateral lower extremity venous stasis dermatitis noted. - Neurological Exam Neurological exam: Present: alert, oriented X3, no focal deficits - Psychiatric Psychiatric exam: Present: normal affect, normal mood - Skin Skin exam: Present: dry, intact, normal color, warm Consult Discharge Plan - Plan Referrals: Beka Young MD [Primary Care Provider] - 11/07/16 2:15 pm - Attending Attestation I examined this patient and my medical decision-making was reviewed with the PAINT SPRAYER SANDBLASTER/PA/Advanced Practice Nurse/Resident Physician. I agree with the documented findings, disposition and treatment plan as described except to the extent set forth below.
[2016-11-01] MEDS: Ibuprofen 400 MG TABLET PO PRN (14:21)
--- NOTE | 2016-11-01 16:45 | Internal Med Progress Note ---
Date of Encounter: 11/01/16 Time of Encounter: 10:00 - Assessment and plan (1) Cellulitis Current Visit: Yes Status: Acute Assessment and plan: Will continue Vanco and Unysin treatment. Leg elevation. ID consult appreciated. CT LE negative to abscess. Patient is at high risk because he is on vancomycin. Need close monitoring. Qualifiers: Site of cellulitis: extremity Site of cellulitis of extremity: lower extremity Laterality: left Qualified Code(s): L03.116 - Cellulitis of left lower limb (2) HTN (hypertension) Current Visit: Yes Status: Chronic Assessment and plan: continue home medications Qualifiers: Hypertension type: essential hypertension Qualified Code(s): I10 - Essential (primary) hypertension (3) CAD (coronary artery disease) Current Visit: Yes Status: Chronic Assessment and plan: stable, continue home medications Qualifiers: Coronary Disease-Associated Artery/Lesion type: [place] artery [place] vs. transplanted heart: [place] heart Associated angina: without angina Qualified Code(s): I25.10 - Atherosclerotic heart disease of [place] coronary artery without angina pectoris (4) DVT prophylaxis Current Visit: No Status: Acute Assessment and plan: Heparin subcutaneously (5) Idiopathic chronic venous hypertension of both lower extremities with inflammation Current Visit: Yes Status: Chronic Assessment and plan: Had stripping. Vascular surgery consult appreciated - Time Spent With Patient Greater than 35 minutes - Subjective Interval history: patient is a 51-year-old male admitted for cellulitis, failed outpatient by mouth antibiotic treatment. Past medical history significant for hypertension, CAD, B/L lower extremity varicose veins s/p multiple striping and ablation. Patient was seen and examined. still complaining of left-sided lower leg pain, but less now. Clinically improved cellulitis. Vascular and ID consult appreciated. CT shows no abscess. Cont iv vanco and unasyn. May need prolonged abx, will switch po upon discharge. - Constitutional Vitals: Temp Pulse Resp BP Pulse Ox 97.6 F 72 18 113/67 96 11/01/16 15:17 11/01/16 15:17 11/01/16 15:17 11/01/16 15:17 11/01/16 15:17 General appearance: Present: A&O X 3, no acute distress, answers questions appropriately - Head Head exam: Present: atraumatic, normocephalic - Eye Eye exam: Present: PERRL, conjuntiva pink, sclera anicteric Pupils: Present: PERRL - Neck Neck exam general surgery: Present: supple, trachea midline. Absent: lymphadenopathy - Respiratory Respiratory exam: Present: CTAB. Absent: accessory muscle use, rales, rhonchi, wheezes - Cardiovascular Cardiovascular exam: Present: RRR, +S1, +S2. Absent: diastolic murmur, gallop, rubs, systolic murmur - GI/Abdominal GI/Abdominal exam: Present: normal bowel sounds, soft, no peritoneal signs. Absent: distended, tenderness - Extremities Exam Extremities exam: Present: tenderness, warm, radial pulses palpable and symetrical. Absent: calf tenderness, cyanotic, pedal edema Additional comments: Skin redness, improved comparing yesterday - Neurological Exam Neurological exam: Present: CN II-XII intact, oriented X3, no focal deficits. Absent: pronater drift, facial droop, speech deficit - Skin Skin exam: Present: dry, intact Internal Medicine: Result - Labs CBC & Chem 7: 11/01/16 06:01 11/01/16 06:01 Labs: Short CBC 11/01/16 Range/Units 06:01 WBC 5.2 (4.3-11.1) K/mcL Hgb 13.2 (12.9-16.9) g/dL Hct 40.5 (37.5-50.1) % Plt Count 165 (140-400) K/mcL Neutrophils # 2.7 (1.6-8.9) K/mcL BMP 11/01/16 06:01 Sodium 138 Potassium 4.1 Chloride 104 Carbon Dioxide 26 BUN 9 Creatinine 0.71 L Glucose 94 Calcium 8.9 - ABG Interpretation ABG results: PT/INR, D-dimer PT 11.3 Seconds (9.4-12.1) 10/28/16 19:31 - Impressions Impressions Lower Extremity CT 10/31/16 15:55 IMPRESSION: 1. Diffuse bilateral lower extremity subcutaneous fat stranding and skin thickening compatible with cellulitis versus lymphedema. No drainable fluid collection. 2. No acute osseous abnormality. D/ / Gael Barr MD / Gael Barr MD Interpreting Provider: Gael Barr MD Lower Extremity CT 10/31/16 15:55 IMPRESSION: 1. Diffuse bilateral lower extremity subcutaneous fat stranding and skin thickening compatible with cellulitis versus lymphedema. No drainable fluid collection. 2. No acute osseous abnormality. D/ / Gael Barr MD / Gael Barr MD Interpreting Provider: Gael Barr MD Consult Discharge Plan - Plan Referrals: Beka Young MD [Primary Care Provider] - 11/07/16 2:15 pm
--- NOTE | 2016-11-01 17:26 | Vascular/[facility] Progress Note ---
Date of Encounter: 11/01/16 Time of Encounter: 17:00 - Assessment and plan (1) Cellulitis Current Visit: Yes Status: Acute The patient has developed recurrent left lateral and posterior calf cellulitis. This appears unrelated to his prior phlebectomy. The source appear to be through fungal wounds at toes. He has continued improvement with intravenous antibiotics. Oral antibiotics per ID. Will sign off. Patient will follow-up in vascular clinic. Qualifiers: Site of cellulitis: extremity Site of cellulitis of extremity: lower extremity Laterality: left Qualified Code(s): L03.116 - Cellulitis of left lower limb (2) Idiopathic chronic venous hypertension of both lower extremities with inflammation Current Visit: Yes Status: Chronic - Subjective Interval history: COntinues to improve, no fevers, no acute issues. Vital Signs, Last 4 Hours Temp Pulse Resp BP Pulse Ox 11/01/16 15:17 97.6 F 72 18 113/67 96 - Physical Examination Cardiac: Present: Reg Rate and Rhythm Lungs: Present: Normal Breath Sounds Vascular: Present: Surgical incisions (clean, dry and intact without erythema or drainage) Abdomen: Present: Soft Skin: Present: Other (cellulitis at left lateral leg) Results 11/01/16 06:01 11/01/16 06:01 Lab Results, Last 24 hours 11/01/16 11/01/16 06:01 06:01 WBC 5.2 Hgb 13.2 Hct 40.5 Plt Count 165 Sodium 138 Potassium 4.1 Chloride 104 Carbon Dioxide 26 BUN 9 Creatinine 0.71 L Glucose 94 Calcium 8.9 - Imaging / Other Tests CT/CTA: report reviewed, image reviewed Consult Discharge Plan - Plan Referrals: Beka Young MD [Primary Care Provider] - 11/07/16 2:15 pm
[2016-11-01] MEDS: Aspirin Enteric Coated 81 MG Tablet PO SCH (17:52)
[2016-11-01] MEDS: Loratadine 10 MG TABLET PO SCH (17:52)
[2016-11-01] MEDS: *HR* Morphine 2 MG/ML SYRINGE IVP PRN (18:45)
[2016-11-01] MEDS: Vancomycin 1,750 MG in D5% in Water 500 ML IVPB SCH (20:32)
[2016-11-02] MEDS: Ampicillin/Sulbactam 3,000 MG in 0.9 % Sodium Chloride Mini Bag 100 ML IVPB SCH ×4 (00:10→17:13)
[2016-11-02 04:00] LABS: Basophils % 0.6 %; Eosinophils # 0.3 K/mcL (0.0-0.6); Hematocrit 40.9 % (37.5-50.1); Hemoglobin 13.1 g/dL (12.9-16.9); Immature Granulocytes % 0.2 % (0-4); Lymphocytes # 2.1 K/mcL (0.6-4.6); Lymphocytes % 38.2 %; Mean Corpuscular Hemoglobin 27.5 pg (28.0-33.3); Mean Corpuscular Volume 85.7 fL (83.0-100.0); Mean Platelet Volume 10.9 fL (9.4-12.4); Monocytes # 0.5 K/mcL (0.0-1.3); Monocytes % 9.9 %; Neutrophils # 2.4 K/mcL (1.6-8.9); Platelet Count 179 K/mcL (140-400); Red Blood Count 4.77 M/mcL (4.19-5.50); Red Cell Distribution Width 13.9 % (11.5-14.5); Segmented Neutrophils % 45.1 %
[2016-11-02 04:24] LABS: BUN/Creatinine Ratio 12 (6-26); Blood Urea Nitrogen 10 mg/dL (8-26); Calcium 9.1 mg/dL (8.6-10.8); Carbon Dioxide 29 mEq/L (19-29); Chloride 105 mEq/L (98-109); Glucose 92 mg/dL (70-99); Osmolality,Calculated 291 (280-300); Potassium 3.8 mEq/L (3.5-4.5); Sodium 141 mEq/L (136-145); eGFR For African Americans > 60 (> 60); eGFR For Non-African Americans > 60 (> 60)
[2016-11-02] MEDS: Famotidine 20 MG TABLET PO SCH ×2 (06:24→15:46)
[2016-11-02] MEDS: *HR* Heparin 5,000 UNIT/ML VIAL SQ SCH ×3 (06:25→20:29)
[2016-11-02] MEDS: Isosorbide MONOnitrate (24 HR) 60 MG TAB.ER.24H PO SCH (07:47)
[2016-11-02] MEDS: hydroCHLOROthiazide 25 MG TABLET PO SCH (07:48)
[2016-11-02] MEDS: Vancomycin 1,750 MG in D5% in Water 500 ML IVPB SCH ×2 (07:48→20:29)
[2016-11-02] MEDS: Lactobacillus 1 EACH CAP.SPRINK PO SCH (07:48)
[2016-11-02] MEDS: Multivit/Ca/Min/Fe/FA 1 TAB TABLET PO SCH (07:48)
[2016-11-02] MEDS: Clotrimazole 1% CRM 15 GM TUBE TP SCH ×2 (07:49→20:31)
--- NOTE | 2016-11-02 14:09 | Internal Med Progress Note ---
Date of Encounter: 11/02/16 Time of Encounter: 10:00 - Assessment and plan (1) Cellulitis Current Visit: Yes Status: Acute Assessment and plan: Will continue Vanco and Unysin treatment. Leg elevation. May switch to po keflex upon discharge. ID consult appreciated. CT LE negative to abscess. Patient is at high risk because he is on vancomycin. Need close monitoring. Qualifiers: Site of cellulitis: extremity Site of cellulitis of extremity: lower extremity Laterality: left Qualified Code(s): L03.116 - Cellulitis of left lower limb (2) HTN (hypertension) Current Visit: Yes Status: Chronic Assessment and plan: continue home medications Qualifiers: Hypertension type: essential hypertension Qualified Code(s): I10 - Essential (primary) hypertension (3) CAD (coronary artery disease) Current Visit: Yes Status: Chronic Assessment and plan: stable, continue home medications Qualifiers: Coronary Disease-Associated Artery/Lesion type: [place] artery [place] vs. transplanted heart: [place] heart Associated angina: without angina Qualified Code(s): I25.10 - Atherosclerotic heart disease of [place] coronary artery without angina pectoris (4) DVT prophylaxis Current Visit: No Status: Acute Assessment and plan: Heparin subcutaneously (5) Idiopathic chronic venous hypertension of both lower extremities with inflammation Current Visit: Yes Status: Chronic Assessment and plan: Had stripping. Vascular surgery consult appreciated - Time Spent With Patient Greater than 35 minutes - Subjective Interval history: patient is a 51-year-old male admitted for cellulitis, failed outpatient by mouth antibiotic treatment. Past medical history significant for hypertension, CAD, B/L lower extremity varicose veins s/p multiple striping and ablation. Patient was seen and examined. less lower leg pain. Clinically improved cellulitis. Vascular and ID consult appreciated. CT shows no abscess. Pt failed po abx outpatient treatment. Will have prolonged iv vanco and unasyn treatment. Will switch to po keflex upon discharge per ID recommendation. - Constitutional Vitals: Temp Pulse Resp BP Pulse Ox 97.8 F 68 18 107/68 95 11/02/16 11:34 11/02/16 11:34 11/02/16 11:34 11/02/16 11:34 11/02/16 11:34 General appearance: Present: A&O X 3, no acute distress, answers questions appropriately - Head Head exam: Present: atraumatic, normocephalic - Eye Eye exam: Present: PERRL, conjuntiva pink, sclera anicteric Pupils: Present: PERRL - Neck Neck exam general surgery: Present: supple, trachea midline. Absent: lymphadenopathy - Respiratory Respiratory exam: Present: CTAB. Absent: accessory muscle use, rales, rhonchi, wheezes - Cardiovascular Cardiovascular exam: Present: RRR, +S1, +S2. Absent: diastolic murmur, gallop, rubs, systolic murmur - GI/Abdominal GI/Abdominal exam: Present: normal bowel sounds, soft, no peritoneal signs. Absent: distended, tenderness - Extremities Exam Extremities exam: Present: warm, radial pulses palpable and symetrical. Absent : calf tenderness, cyanotic, pedal edema Additional comments: LLE Skin redness almost resolved. Still hard/thick skin - Neurological Exam Neurological exam: Present: CN II-XII intact, oriented X3, no focal deficits. Absent: pronater drift, facial droop, speech deficit - Skin Skin exam: Present: dry, intact Internal Medicine: Result - Labs CBC & Chem 7: 11/02/16 02:50 11/02/16 02:50 Labs: Short CBC 11/02/16 Range/Units 02:50 WBC 5.4 (4.3-11.1) K/mcL Hgb 13.1 (12.9-16.9) g/dL Hct 40.9 (37.5-50.1) % Plt Count 179 (140-400) K/mcL Neutrophils # 2.4 (1.6-8.9) K/mcL BMP 11/02/16 02:50 Sodium 141 Potassium 3.8 Chloride 105 Carbon Dioxide 29 BUN 10 Creatinine 0.83 Glucose 92 Calcium 9.1 - ABG Interpretation ABG results: PT/INR, D-dimer PT 11.3 Seconds (9.4-12.1) 10/28/16 19:31 Consult Discharge Plan - Plan Referrals: Beka Young MD [Primary Care Provider] - 11/07/16 2:15 pm
[2016-11-02] MEDS: *HR* Morphine 2 MG/ML SYRINGE IVP PRN (16:12)
[2016-11-02] MEDS: Loratadine 10 MG TABLET PO SCH (17:13)
[2016-11-02] MEDS: Aspirin Enteric Coated 81 MG Tablet PO SCH (17:13)
[2016-11-02] MEDS: *HR* OxyCODONE Immed Rel 5 MG TABLET PO PRN (20:29)
[2016-11-03] MEDS: *HR* Morphine 2 MG/ML SYRINGE IVP PRN (00:25)
[2016-11-03] MEDS: Ampicillin/Sulbactam 3,000 MG in 0.9 % Sodium Chloride Mini Bag 100 ML IVPB SCH ×2 (00:26→05:56)
[2016-11-03] MEDS: *HR* OxyCODONE Immed Rel 5 MG TABLET PO PRN (05:56)
[2016-11-03] MEDS: *HR* Heparin 5,000 UNIT/ML VIAL SQ SCH (05:57)
[2016-11-03] MEDS: hydroCHLOROthiazide 25 MG TABLET PO SCH (07:56)
[2016-11-03] MEDS: Isosorbide MONOnitrate (24 HR) 60 MG TAB.ER.24H PO SCH (07:56)
[2016-11-03] MEDS: Multivit/Ca/Min/Fe/FA 1 TAB TABLET PO SCH (07:56)
[2016-11-03] MEDS: Famotidine 20 MG TABLET PO SCH (07:56)
[2016-11-03] MEDS: Lactobacillus 1 EACH CAP.SPRINK PO SCH (07:56)
[2016-11-03] MEDS: Vancomycin 1,750 MG in D5% in Water 500 ML IVPB SCH (07:57)
[2016-11-03] MEDS: Clotrimazole 1% CRM 15 GM TUBE TP SCH (07:57)
[2016-11-03 08:57] VITALS: BP 119/79
--- NOTE | 2016-11-03 10:27 | Discharge Summary ---
Date of Encounter: 11/03/16 Time of Encounter: 10:00 - Discharge Diagnosis (1) Cellulitis Priority: Primary Status: Acute Qualifiers: Site of cellulitis: extremity Site of cellulitis of extremity: lower extremity Laterality: left Qualified Code(s): L03.116 - Cellulitis of left lower limb (2) HTN (hypertension) Priority: Secondary Status: Chronic Qualifiers: Hypertension type: essential hypertension Qualified Code(s): I10 - Essential (primary) hypertension (3) CAD (coronary artery disease) Priority: Secondary Status: Chronic Qualifiers: Coronary Disease-Associated Artery/Lesion type: [place] artery [place] vs. transplanted heart: [place] heart Associated angina: without angina Qualified Code(s): I25.10 - Atherosclerotic heart disease of [place] coronary artery without angina pectoris (4) DVT prophylaxis Priority: Secondary Status: Acute (5) Idiopathic chronic venous hypertension of both lower extremities with inflammation Priority: Secondary Status: Chronic - Discharge Medications Prescriptions: cephALEXin [Keflex] 500 mg PO QID #40 capsule Lactobacillus [Culturelle] 2 each PO DAILY #60 cap.sprink Home Medications: Atenolol [Tenormin] 75 mg PO DAILY #0 03/31/15 [History] Atorvastatin Calcium [Lipitor] 80 mg PO HS #0 03/31/15 [History] Clopidogrel [Plavix] 75 mg PO DAILY #0 03/31/15 [History] Famotidine [Pepcid] 20 mg PO BID #0 03/31/15 [History] hydroCHLOROthiazide [Hydrochlorothiazide] 25 mg PO DAILY #0 03/31/15 [History] Aspirin Enteric Coated [Aspirin EC] 81 mg PO QPM 11/03/15 [History] Multivitamin [Multivitamins] 1 tab PO DAILY 11/03/15 [History] Potassium 99 mg PO DAILY 11/03/15 [History] Albuterol Sulfate [Albuterol Inhaler] 2 puff IH Q4HR PRN 08/13/16 [History] Cetirizine HCl [Zyrtec] 10 mg PO QPM 08/13/16 [History] Cyclobenzaprine HCl 5 mg PO DAILY PRN 08/13/16 [History] Isosorbide MONOnitrate (24 HR) [Imdur] 60 mg PO DAILY 08/13/16 [History] Nitroglycerin [Nitrostat] 0.4 mg SL Q5M PRN 08/13/16 [History] Pantoprazole Sodium [Protonix] 40 mg PO QPM 08/13/16 [History] Acetaminophen [Tylenol] 1,000 mg PO Q6HR PRN #0 tablet 09/23/16 [Rx] Lactobacillus [Culturelle] 2 each PO DAILY #60 cap.sprink 11/03/16 [Rx] cephALEXin [Keflex] 500 mg PO QID #40 capsule 11/03/16 [Rx] Allergies/Adverse Reactions: Allergies No Known Allergies Allergy (Verified 10/14/16 10:08) Procedures/tests Complete & Pending: Procedures Performed prior 72 hours Category Date Time Status CT LE LT w con [CT] Stat Cat Scan 10/31/16 15:[address] LE RT w con [CT] Stat Cat Scan 10/31/16 15:55 Completed Date of admission: 10/28/16 22:50 Primary care physician: Beka Young MD Consults: 10/29/16 17:16 Consult to Vascular Surgery [CONS] Routine Consulting Provider: V[facility] Surgery [place] Reason for Consult: S/P stripping. Cellulitis, superfacial vein thrombosis Call Completed: Yes Discharging clinician: Genaro Baird Anticipated date of discharge: 11/03/16 - Patient Status Disposition: Home, Self-Care Condition: Fair Functional capacity at discharge: independent ambulation Overall status at discharge: patient is progressing back to baseline - Discharge Instructions Follow Up With: Beka Young MD [Primary Care Provider] - 11/07/16 2:15 pm - Diet and Activity Activity: increase activity as tolerated Diet: advance to your usual diet Interval History: Mr. Herzog is a 51 year old male with a history of bilateral lower extremity varicose veins s/p multiple striping and ablation and associated folliculitis and recurrent cellulitis was brought in for left lower extremity swelling. He was reportedly in his usual state of health a few days post left lower extremity varicose veins stripping when he began to notice on Friday that his left lower extremity was increasingly getting swollen. It had a red patch on the posterior lateral area with throbbing pain that was 6/10 in severity, was non radiating, pain was worse with movement and touch and the area was warm. He was started on Bactrim on Friday and had previously being on Doxycycline for about 14 days but his symptoms did not improve so he presented to the ER today for further evaluation and management. He reports subjective fever and chills but no nausea or vomiting. Hospital course: Mr. Herzog is a 51 year old male admitted for cellulitis failed outpatient treatment. Patient had saphenous vein stripping recently. He had recurrent cellulitis. Muscular and ID consult was called. Patient was placed on Vanco and Unasyn. After treatment, his cellulitis has improved clinically. CT leg shows no abscess. Patient may need prolonged antibiotic treatment. Will place patient on by mouth Keflex for 7-10 more days (total antibiotic treatment 14 days ) per ID recommendation. I saw and examined the patient, he is doing well, still mild tenderness on left leg. Redness has almost resolved. Vitals are stable. Patient with discharge home with by mouth medication and the follow-up vascular surgery as outpatient. - Time Spent with Patient Total time spent providing and/or coordinating discharge services: 25 minutes Less than 30 minutes - Constitutional Vitals: Temp Pulse Resp BP Pulse Ox 98.1 F 69 15 119/79 94 11/03/16 08:55 11/03/16 08:55 11/03/16 08:55 11/03/16 08:55 11/03/16 08:55 General appearance: Present: A&O X 3, no acute distress, answers questions appropriately - Head Head exam: Present: atraumatic, normocephalic - Eye Eye exam: Present: PERRL, conjuntiva pink, sclera anicteric Pupils: Present: PERRL - Neck Neck exam general surgery: Present: supple, trachea midline. Absent: lymphadenopathy - Respiratory Respiratory exam: Present: CTAB. Absent: accessory muscle use, rales, rhonchi, wheezes - Cardiovascular Cardiovascular exam: Present: RRR, +S1, +S2. Absent: diastolic murmur, gallop, rubs, systolic murmur - GI/Abdominal GI/Abdominal exam: Present: normal bowel sounds, soft, no peritoneal signs. Absent: distended, tenderness - Extremities Exam Extremities exam: Present: warm, radial pulses palpable and symetrical. Absent : calf tenderness, cyanotic, pedal edema Additional comments: Skin thickness and hard on LLE - Neurological Exam Neurological exam: Present: CN II-XII intact, oriented X3, no focal deficits. Absent: pronater drift, facial droop, speech deficit - Skin Skin exam: Present: dry, intact
[2016-11-03] MEDS ORDERED: Aminoglycoside Consult 1 EACH MC ONE (11:18)
== END 2016-11-03 11:19 | disposition home or self-care (01) | DRG 603 ==
LOC: EMEROO 18:07 → 3ANU 18:07 → SUATTDRO 22:50
PROVIDERS: ADMIT Internal Medicine; ATTEND Internal Medicine

== ENCOUNTER 2016-11-19 11:50 | Inpatient (IN) ==
--- NOTE | 2016-11-19 12:08 | Emergency Department Note ---
Disposition Clinical Impression: Cellulitis Qualifiers: Site of cellulitis: extremity Site of cellulitis of extremity: lower extremity Laterality: left Qualified Code(s): L03.116 - Cellulitis of left lower limb Disposition: Admitted As Inpatient Condition: Fair Referrals: NO,PCP [Non-Partnered Physician] - Forms: ED Satisfaction Letter Time of Disposition: 14:24 Skin/Abscess/FB HPI Chief complaint: ED Skin/Abscess/Foreign Body Stated complaint: Infection in Left calf Time Seen by Provider: 11/19/16 11:57 Source: patient, family Mode of arrival: ambulatory Limitations: no limitations Nursing Notes Reviewed: Yes Vital Signs Reviewed: Yes HPI Narrative: 51-year-old with a history of previous cellulitis on the legs was noted to have increasing redness to his legs saw his family doctor yesterday started on Bactrim and his redness and pain has gotten worse. Pt Subjective Complaint: rash Onset (ago): day(s) Location: LLE, RLE Severity: moderate Quality: burning, aching Consistency: constant Improves with: none Worsens with: none Context: none Associated symptoms: Reports: fever Treatments prior to arrival: none Home Medications Medication Instructions Recorded Confirmed Atenolol [Tenormin] 75 mg PO DAILY #0 03/31/15 11/19/16 Atorvastatin Calcium [Lipitor] 80 mg PO HS #0 03/31/15 11/19/16 Clopidogrel [Plavix] 75 mg PO DAILY #0 03/31/15 11/19/16 Famotidine [Pepcid] 20 mg PO BID #0 03/31/15 11/19/16 hydroCHLOROthiazide 25 mg PO DAILY #0 03/31/15 11/19/16 [Hydrochlorothiazide] Aspirin Enteric Coated [Aspirin EC] 81 mg PO QPM 11/03/15 11/19/16 Multivitamin [Multivitamins] 1 tab PO DAILY 11/03/15 11/19/16 Potassium 99 mg PO DAILY 11/03/15 11/19/16 Albuterol Sulfate [Albuterol 2 puff IH Q4HR PRN 08/13/16 11/19/16 Inhaler] Cetirizine HCl [Zyrtec] 10 mg PO QPM 08/13/16 11/19/16 Cyclobenzaprine HCl 5 mg PO DAILY PRN 08/13/16 11/19/16 Isosorbide MONOnitrate (24 HR) 60 mg PO DAILY 08/13/16 11/19/16 [Imdur] Nitroglycerin [Nitrostat] 0.4 mg SL Q5M PRN 08/13/16 11/19/16 Pantoprazole Sodium [Protonix] 40 mg PO QPM 08/13/16 11/19/16 Clotrimazole 1% CRM [Lotrimin 1%] 1 appl TP BID 11/19/16 11/19/16 Lactobacillus [Culturelle] 1 each PO DAILY 11/19/16 11/19/16 Mupirocin [Bactroban Oint] 1 appl TP TID 11/19/16 11/19/16 Sulfamethoxazole/Trimeth DS 1 each PO BID 11/19/16 11/19/16 [Bactrim DS] Previous Rx's Medication Instructions Recorded Acetaminophen [Tylenol] 1,000 mg PO Q6HR PRN #0 tablet 09/23/16 Allergies Allergy/AdvReac Type Severity Reaction Status Date / Time No Known Allergies Allergy Verified 10/14/16 10:08 All systems ED: reviewed and negative except as stated. Constitutional: Denies: fever, chills, weakness, weight change Eyes: Denies: eye pain, eye discharge, vision change ENT ED: Denies: ear pain, throat pain, dental pain, hearing loss, epistaxis, congestion, dysphagia Cardiovascular: Denies: chest pain, palpitations, dyspnea on exertion, edema, syncope Respiratory: Denies: cough, dyspnea, wheezes, hemoptysis, stridor Gastrointestinal: Denies: abdominal pain, nausea, vomiting, diarrhea, constipation, hematemesis, melena, hematochezia Genitourinary: Denies: urgency, dysuria, frequency, hematuria Musculoskeletal: Denies: back pain, neck pain, arthralgia, myalgia Integumentary: Reports: rash. Denies: abrasion, lesions Neurological: Denies: headache, weakness, numbness, paresthesias, confusion, abnormal gait, vertigo Psychiatric: Denies: anxiety, depression, suicidal thoughts, homicidal thoughts , auditory hallucinations, visual hallucinations Endocrine: Denies: fatigue Hematological/Lymphatic: Denies: easy bleeding, easy bruising Allergic/Immunologic: Denies: facial swelling, urticaria Past Medical History - Past Medical History Medical history: Reports: hyperlipidemia, hypertension, myocardial infarction, other Surgical history: Reports: angioplasty/stent, appendectomy, other (vein stripping and ablation) Psychiatric history: Reports: no psych history - Social History Smoking Status: Never smoker Smokeless Tobacco Status: No Alcohol use: Reports: none Drug use: Reports: none Physical Exam - General Limitations: no limitations General appearance: alert, in no apparent distress - Head Head exam: atraumatic, normocephalic, normal inspection - Eye Eye exam: Present: normal appearance, PERRL, EOMI - ENT ENT exam: normal exam, normal oropharynx, mucous membranes moist - Neck Neck exam: Present: normal inspection, full ROM, trachea midline - Chest Chest inspection: Present: normal inspection, symmetric chest wall rise - Respiratory Respiratory exam: Present: normal lung sounds bilaterally - Cardiovascular Cardiovascular exam: Present: regular rate, normal rhythm, normal heart sounds - Abdominal Exam Abdominal exam: Present: soft, Non-Tender. Absent: tenderness, distention, guarding, rebound, rigidity - Extremities Exam Extremities exam: Present: normal inspection, full ROM. Absent: tenderness, pedal edema - Expanded Lower Extremity Exam Lower leg exam: Present: erythema Neurovascular/Tendon exam: Absent: motor deficit, sensory deficit, tendon deficit Gait: observed and normal - Back Exam Back exam: Present: normal inspection, full ROM. Absent: tenderness - Neurological Exam Neurological exam: Present: alert, oriented X3 - Psychiatric Psychiatric exam: Present: normal affect, normal mood Course Vital Signs Temperature 97.9 F 11/19/16 11:53 Pulse Rate 77 11/19/16 11:53 Respiratory Rate 18 11/19/16 11:53 Blood Pressure 158/72 11/19/16 11:53 O2 Sat by Pulse Oximetry 97 11/19/16 11:53 Temperature 97.9 F 11/19/16 11:53 Pulse Rate 76 11/19/16 14:37 Respiratory Rate 20 11/19/16 14:37 Blood Pressure 110/64 11/19/16 14:37 O2 Sat by Pulse Oximetry 98 11/19/16 14:37 Oxygen Delivery Oxygen Delivery Room Air Skin/Abscess/Foreign Body - Lab Data Lab results reviewed: Yes I reviewed the patient's lab results. Result diagrams: 11/19/16 12:49 11/19/16 12:49 Lab Results 06/13/17 06/13/17 06/13/17 Range/Units 12:49 12:49 12:49 WBC 5.5 (4.3-11.1) K/mcL RBC 5.15 (4.19-5.50) M/mcL Hgb 14.2 (12.9-16.9) g/dL Hct 43.9 (37.5-50.1) % MCV 85.2 (83.0-100.0) fL MCH 27.6 L (28.0-33.3) pg MCHC 32.3 (31.6-35.5) g/dL RDW 14.4 (11.5-14.5) % Plt Count 176 (140-400) K/mcL MPV 10.9 (9.4-12.4) fL Immature Gran % 0.4 (0-4) % Seg Neutrophils % 74.9 % Lymphocytes % 15.4 % Monocytes % 6.0 % Eosinophils % 3.1 % Basophils % 0.2 % Neutrophils # 4.1 (1.6-8.9) K/mcL Lymphocytes # 0.8 (0.6-4.6) K/mcL Monocytes # 0.3 (0.0-1.3) K/mcL Eosinophils # 0.2 (0.0-0.6) K/mcL Basophils # 0.0 (0.0-0.2) K/mcL ESR 15 H (0-10) mm/hr Sodium 140 (136-145) mEq/L Potassium 3.9 (3.5-4.5) mEq/L Chloride 103 (98-109) mEq/L Carbon Dioxide 29 (19-29) mEq/L BUN 15 (8-26) mg/dL Creatinine 0.91 (0.72-1.25) mg/dL Est GFR ( Amer) > 60 (> 60) Est GFR (Non-Af Amer) > 60 (> 60) BUN/Creatinine Ratio 16 (6-26) Glucose 89 (70-99) mg/dL Calculated Osmolality 290 (280-300) Calcium 9.5 (8.6-10.8) mg/dL - Radiology Data Radiology results reviewed: Yes I reviewed the patient's radiology results. Venous Doppler is negative for DVT there is a superficial finding at the site of previous ablation.
[2016-11-19 13:07] LABS: Basophils % 0.2 %; Eosinophils # 0.2 K/mcL (0.0-0.6); Eosinophils % 3.1 %; Hematocrit 43.9 % (37.5-50.1); Hemoglobin 14.2 g/dL (12.9-16.9); Immature Granulocytes % 0.4 % (0-4); Lymphocytes # 0.8 K/mcL (0.6-4.6); Lymphocytes % 15.4 %; Mean Corpuscular HGB Conc 32.3 g/dL (31.6-35.5); Mean Corpuscular Hemoglobin 27.6 pg (28.0-33.3); Mean Corpuscular Volume 85.2 fL (83.0-100.0); Mean Platelet Volume 10.9 fL (9.4-12.4); Monocytes # 0.3 K/mcL (0.0-1.3); Neutrophils # 4.1 K/mcL (1.6-8.9); Platelet Count 176 K/mcL (140-400); Red Blood Count 5.15 M/mcL (4.19-5.50); Red Cell Distribution Width 14.4 % (11.5-14.5); Segmented Neutrophils % 74.9 %
[2016-11-19 13:19] LABS: BUN/Creatinine Ratio 16 (6-26); Blood Urea Nitrogen 15 mg/dL (8-26); Calcium 9.5 mg/dL (8.6-10.8); Carbon Dioxide 29 mEq/L (19-29); Chloride 103 mEq/L (98-109); Glucose 89 mg/dL (70-99); Osmolality,Calculated 290 (280-300); Potassium 3.9 mEq/L (3.5-4.5); Sodium 140 mEq/L (136-145); eGFR For African Americans > 60 (> 60); eGFR For Non-African Americans > 60 (> 60)
[2016-11-19] MEDS ORDERED: Vancomycin 1,000 MG in D5% in Water 250 ML IVPB ONE ×2 (14:24→16:00)
[2016-11-19] MEDS ORDERED: Naloxone 0.4 MG/ML INJ IVP PRN (15:09)
[2016-11-19] MEDS ORDERED: Vancomycin 2,000 MG in D5% in Water 500 ML IVPB ONE (15:40)
[2016-11-19] MEDS: Acetaminophen 325 MG TABLET PO PRN (18:32)
--- NOTE | 2016-11-19 20:21 | Event Note ---
Date of Encounter: 11/19/16 Time of Encounter: 19:00 I examined this patient and my medical decision-making was reviewed with the Advanced Practice Nurse. I agree with the documented findings, disposition and treatment plan as described except to the extent set forth below. On exam there is apparent in left guzman redness and warmth, tenderness of the area to palpation and mild subcutaneous edema consistent with cellulitis. Plan: We will treat him with vancomycin. Dosing by levels. Consider Consulting ID if no improvement over the next 24-48 hours. Follow-up blood cultures. Consider Zyvox on discharge for MRSA coverage.
--- NOTE | 2016-11-19 23:28 | Internal Med History&Physical ---
Date of Encounter: 11/19/16 Time of Encounter: 14:00 Assessment and Plan (1) Cellulitis of left lower extremity without foot Current visit: Yes Status: Acute 1 patient has chronic history of cellulitis. Left lower extremity is edematous and anemia tender to touch. Blood cultures obtained patient initiated on vancomycin 2 we will consult ID as needed (2) HTN (hypertension) Current visit: No Status: Chronic 1 resume controlled we will continue with home medications Qualifiers: Hypertension type: essential hypertension Qualified Code(s): I10 - Essential (primary) hypertension (3) CAD (coronary artery disease) Current visit: No Status: Chronic 1 continue with aspirin Plavix statin Qualifiers: Coronary Disease-Associated Artery/Lesion type: [place] artery [place] vs. transplanted heart: [place] heart Associated angina: without angina Qualified Code(s): I25.10 - Atherosclerotic heart disease of [place] coronary artery without angina pectoris (4) DVT prophylaxis Current visit: No Status: Acute 1 [facility] Internal Medicine - H&P: HPI Chief complaint: lower extremity redness swelling Admitted From: Emergency Dept Plans for Post Hospital Care: Home History of present illness: Mr. Herzog is a 51 year old male past medical history of coronary artery disease with stent hypertension GERD there are crisp and stripping with lesion GERD recurrent cellulitis. In September of this year patient underwent venous stripping with ablation in October he developed a cellulitis to his lower extremities he was treated as outpatient with Bactrim and doxycycline which failed he was admitted to the hospital seen by infectious disease was treated with vancomycin and Unasyn in which he did see some improvement. Blood cultures were obtained which did not reveal any growth. He was discharged home on Keflex he followed up with primary care physician who extended the Keflex use he states he stopped taking Keflex on Friday11/15/16 and by Friday he noticed a reddened area to the back of his left guzman. His left lower leg began to swell and become more warm to touch red and painful over the next couple of days. On Friday he went to his primary care physician who prescribed him doxycycline. Today he awoke the left leg was very swollen and right leg was slightly swollen. He presented to the ER for evaluation. [facility] his Doppler was obtained which was negative for any DVT lab work with no leukocytosis ESR was 15 patient was afebrile. Blood cultures were obtained patient was started on vancomycin. He has been admitted for further workup and evaluation. Presently patient denies any pain or discomfort does not appear to be in respiratory distress. Lung sounds are clear heart sounds are regular S1 and S2 with no rubs clicks, murmurs noted. His left lower leg has +2 edema very tender to touch red warm pulses are palpable brisk capillary refill bilaterally. She is hemodynamically stable at this time I reviewed this case with who agrees with plan. Past Med Surg Social Fam HX - Past Medical History Medical history: hyperlipidemia, hypertension, migraine, myocardial infarction Psychiatric history: no psych history - Past Surgical History Surgical History: angioplasty/stent, appendectomy, other - Social History Smoking Status: Never smoker Smokeless Tobacco Status: No Alcohol use: none Drug use: none - Family History Father Living Status: Hx Family Cardiac Disorders: Yes ([place], quadruple bypass) Internal Medicine - H&P: Meds Atenolol [Tenormin] 75 mg PO DAILY #0 03/31/15 [History] Atorvastatin Calcium [Lipitor] 80 mg PO HS #0 03/31/15 [History] Clopidogrel [Plavix] 75 mg PO DAILY #0 03/31/15 [History] Famotidine [Pepcid] 20 mg PO BID #0 03/31/15 [History] hydroCHLOROthiazide [Hydrochlorothiazide] 25 mg PO DAILY #0 03/31/15 [History] Aspirin Enteric Coated [Aspirin EC] 81 mg PO QPM 11/03/15 [History] Multivitamin [Multivitamins] 1 tab PO DAILY 11/03/15 [History] Potassium 99 mg PO DAILY 11/03/15 [History] Albuterol Sulfate [Albuterol Inhaler] 2 puff IH Q4HR PRN 08/13/16 [History] Cetirizine HCl [Zyrtec] 10 mg PO QPM 08/13/16 [History] Cyclobenzaprine HCl 5 mg PO DAILY PRN 08/13/16 [History] Isosorbide MONOnitrate (24 HR) [Imdur] 60 mg PO DAILY 08/13/16 [History] Nitroglycerin [Nitrostat] 0.4 mg SL Q5M PRN 08/13/16 [History] Pantoprazole Sodium [Protonix] 40 mg PO QPM 08/13/16 [History] Acetaminophen [Tylenol] 1,000 mg PO Q6HR PRN #0 tablet 09/23/16 [Rx] Clotrimazole 1% CRM [Lotrimin 1%] 1 appl TP BID 11/19/16 [History] Lactobacillus [Culturelle] 1 each PO DAILY 11/19/16 [History] Mupirocin [Bactroban Oint] 1 appl TP TID 11/19/16 [History] Sulfamethoxazole/Trimeth DS [Bactrim DS] 1 each PO BID 11/19/16 [History] Allergies No Known Allergies Allergy (Verified 10/14/16 10:08) All Systems PM: A 10-system review of systems was performed and is negative for pertinent findings except as documented above in the HPI. - Constitutional Constitutional: no chills, no fever(s), no night sweats - EENT Eyes: no change in vision, no discharge, no pain, no photophobia Nose, mouth and throat: no dysphagia, no nasal discharge, no neck pain, no sore throat - Cardiovascular Cardiovascular ROS IM: no chest pain, no diaphoresis, no dyspnea, no lightheadedness, no palpitations, no syncope - Respiratory Respiratory: no cough, no dyspnea, no wheezing, no excessive phlegm production - Gastrointestinal Gastrointestinal: no abdominal pain, no diarrhea, no hematemesis, no hematochezia, no melena, no nausea, no vomiting - Musculoskeletal Musculoskeletal ROS IM: no numbness, no tingling - Integumentary Integumentary IM: erythema - Neurological Neurological ROS: no confusion, no convulsions, no focal weakness, no numbness, no tingling, no tremor(s) - Hematologic/Lymphatic Hematologic/Lymphatic: no easy bruising - Constitutional Vitals: Temp Pulse Resp BP Pulse Ox 98.4 F 79 17 112/66 95 11/19/16 20:10 11/19/16 20:10 11/19/16 20:10 11/19/16 20:10 11/19/16 20:10 Internal Med - H&P Results - Labs CBC & Chem 7: 11/19/16 12:49 11/19/16 12:49
[2016-11-19] MEDS ORDERED: Nitroglycerin 0.4 MG TAB.SUBL SL PRN (23:37)
[2016-11-20] MEDS: Acetaminophen 325 MG TABLET PO PRN ×3 (03:20→21:13)
[2016-11-20] MEDS ORDERED: Vancomycin 2,000 MG in D5% in Water 500 ML IVPB SCH (04:00)
[2016-11-20] MEDS: *HR* Enoxaparin 40 MG/0.4 ML SYRINGE SQ SCH (04:50)
[2016-11-20 06:23] LABS: Basophils % 0.3 %; Eosinophils # 0.3 K/mcL (0.0-0.6); Eosinophils % 3.9 %; Hematocrit 40.3 % (37.5-50.1); Hemoglobin 13.3 g/dL (12.9-16.9); Immature Granulocytes % 0.5 % (0-4); Lymphocytes % 15.3 %; Mean Corpuscular Hemoglobin 28.2 pg (28.0-33.3); Mean Corpuscular Volume 85.6 fL (83.0-100.0); Mean Platelet Volume 11.3 fL (9.4-12.4); Monocytes # 0.5 K/mcL (0.0-1.3); Monocytes % 7.4 %; Neutrophils # 4.6 K/mcL (1.6-8.9); Platelet Count 152 K/mcL (140-400); Red Blood Count 4.71 M/mcL (4.19-5.50); Red Cell Distribution Width 14.4 % (11.5-14.5); Segmented Neutrophils % 72.6 %
[2016-11-20 06:41] LABS: BUN/Creatinine Ratio 13 (6-26); Blood Urea Nitrogen 11 mg/dL (8-26); Calcium 8.9 mg/dL (8.6-10.8); Carbon Dioxide 25 mEq/L (19-29); Chloride 102 mEq/L (98-109); Glucose 111 mg/dL (70-99); Osmolality,Calculated 282 (280-300); Potassium 3.6 mEq/L (3.5-4.5); Sodium 136 mEq/L (136-145); eGFR For African Americans > 60 (> 60); eGFR For Non-African Americans > 60 (> 60)
--- NOTE | 2016-11-20 08:31 | Internal Med Progress Note ---
<Debo Mueller - Last Filed: 11/20/16 11:13> Date of Encounter: 11/20/16 Time of Encounter: 08:31 - Assessment and plan (1) Cellulitis of left lower extremity without foot Current Visit: Yes Status: Acute Assessment and plan: Patient with history of right lower extremity cellulitis recently hospitalized 2 presents with left lower extremity cellulitis. Previously, infectious disease was consult during hospitalization 10/28/16. Blood cultures on: and 10/28/16 never identified any obvious organism. Patient has had multiple antibiotic regimens. There was no obvious source at that time. Suspect venous stasis in addition. Additionally, one year ago patient had a traumatic injury to the left lower extremity for which he had a wound that did not heal well and was seen by wound care for evaluation 12/29/15. Blood cultures on 10/13/15 and 10/30/16 were negative at that time as well. Supportive therapy Acetaminophen when necessary for fevers Continue IV vancomycin with pharmacy to dose and follow daily. GI prophylaxis DVT prophylaxis Daily labs to correlate with clinical response. Daily skin examinations to evaluate marked margins for progression of cellulitis versus resolution May consider infectious disease consult. Blood cultures pending The assessment and plan as outlined above was discussed with the patient and/or family members who expressed understanding and agreement. All questions were answered. (2) HTN (hypertension) Current Visit: Yes Status: Chronic Assessment and plan: Controlled. Vital stable. Continue home medications. Qualifiers: Hypertension type: essential hypertension Qualified Code(s): I10 - Essential (primary) hypertension (3) CAD (coronary artery disease) Current Visit: Yes Status: Chronic Assessment and plan: Continue preventative measures with current home medications aspirin, Plavix, statin. Qualifiers: Coronary Disease-Associated Artery/Lesion type: [place] artery [place] vs. transplanted heart: [place] heart Associated angina: without angina Qualified Code(s): I25.10 - Atherosclerotic heart disease of [place] coronary artery without angina pectoris (4) DVT prophylaxis Current Visit: Yes Status: Acute Assessment and plan: Continue Lovenox - Subjective Interval history: Patient was seen and examined. Patient reports heart racing and fever alleviated by Tylenol overnight. MAXIMUM TEMPERATURE 99.1. Left lower extremity is erythematous and moderately edematous and warm with skin intact and is well contained within skin marking edges and has not demonstrated any advancement. Patient remains on IV vancomycin. Blood cultures pending. Patient denies: Recent URI, chest pain, dyspnea, cough, difficulty swallowing, hematuria, flank pain. - Constitutional Vitals: Temp Pulse Resp BP Pulse Ox 98.5 F 81 16 128/69 95 11/20/16 07:28 11/20/16 07:28 11/20/16 07:28 11/20/16 07:28 11/20/16 07:28 Exam: General: Cooperative, pleasant, no acute distress, alert and oriented 3, answers questions appropriately, obese HEENT: Normocephalic, atraumatic, neck supple, trachea midline, Conjunctiva pink , sclera anicteric, EOMI, PERRL, oral mucosa moist, no orophargeal erythema or exudates Respiratory: No accessory muscle usage, distant lung sounds/diminished clear to auscultation bilaterally, no wheezes/rhonchi/rales appreciated Cardiovascular: Regular rate and rhythm, S1 and S2 present, no murmurs/rubs/ gallops/clicks appreciated GI/abdominal: protuberant, midepigastric tenderness, soft, normal bowel sounds, no peritoneal signs Extremities: Left lower extremity calf tenderness with irregular macular erythema and multiple intact pustular lesions, warmth, noncyanotic, pedal edema appreciated, warm, lower extremity pulses palpable and symmetrical Neurological: Alert and oriented 3, no facial droop, no focal deficits Skin: Dry, intact Internal Medicine: Result - Labs CBC & Chem 7: 11/20/16 05:32 11/20/16 05:32 Labs: Short CBC 11/20/16 Range/Units 05:32 WBC 6.4 (4.3-11.1) K/mcL Hgb 13.3 (12.9-16.9) g/dL Hct 40.3 (37.5-50.1) % Plt Count 152 (140-400) K/mcL Neutrophils # 4.6 (1.6-8.9) K/mcL BMP 11/20/16 05:32 Sodium 136 Potassium 3.6 Chloride 102 Carbon Dioxide 25 BUN 11 Creatinine 0.84 Glucose 111 H Calcium 8.9 Consult Discharge Plan - Plan Referrals: Beka Young MD [Primary Care Provider] - <Thea Dickens E - Last Filed: 11/20/16 16:27> Date of Encounter: 11/20/16 - Constitutional Vitals: Temp Pulse Resp BP Pulse Ox 98.9 F 71 18 119/66 94 11/20/16 16:10 11/20/16 16:10 11/20/16 16:10 11/20/16 16:10 11/20/16 16:10 Internal Medicine: Result - Labs CBC & Chem 7: 11/20/16 05:32 11/20/16 05:32 Labs: Short CBC 11/20/16 Range/Units 05:32 WBC 6.4 (4.3-11.1) K/mcL Hgb 13.3 (12.9-16.9) g/dL Hct 40.3 (37.5-50.1) % Plt Count 152 (140-400) K/mcL Neutrophils # 4.6 (1.6-8.9) K/mcL BMP 11/20/16 05:32 Sodium 136 Potassium 3.6 Chloride 102 Carbon Dioxide 25 BUN 11 Creatinine 0.84 Glucose 111 H Calcium 8.9 - Attending Attestation I examined this patient and reviewed laboratory, imaging and all diagnostic data. My medical decision-making was reviewed with Dr Debo Mueller - Resident Physician. I agree with the documented findings, disposition and treatment plan as described above.
[2016-11-20] MEDS: Multivit/Ca/Min/Fe/FA 1 TAB TABLET PO SCH (08:33)
[2016-11-20] MEDS: hydroCHLOROthiazide 25 MG TABLET PO SCH (08:33)
[2016-11-20] MEDS: Isosorbide MONOnitrate (24 HR) 60 MG TAB.ER.24H PO SCH (08:33)
[2016-11-20] MEDS: Famotidine 20 MG TABLET PO SCH ×2 (08:33→21:13)
[2016-11-20] MEDS: Lactobacillus 1 EACH CAP.SPRINK PO SCH (08:33)
[2016-11-20] MEDS ORDERED: Vancomycin (wt based) 1,000 MG VIAL IVPB SCH (09:00)
[2016-11-20] MEDS ORDERED: Vancomycin 2,000 MG in D5% in Water 250 ML IVPB SCH (11:00)
[2016-11-20] MEDS: Vancomycin 2,000 MG in D5% in Water 500 ML IVPB SCH (16:00)
[2016-11-20] MEDS: Loratadine 10 MG TABLET PO SCH (17:12)
[2016-11-20] MEDS: Aspirin Enteric Coated 81 MG Tablet PO SCH (17:12)
--- NOTE | 2016-11-20 18:53 | Venous Imaging Report ---
LE Venous Duplex Patient Name:Rolf Herzog Order Number:[id number] Procedure Date:11/19/2016 Date:1965Age:51 yrs Gender:Male Location:[facility] ED Room #: [place] Clerk:Dolores Randolph RVT, RDCS Referring MD:Sathya Mcginnis MD factory clerk:None Reading MD:Prateek Ji MD , FACS Primary Indications:left leg pain and swelling Secondary Indications: Risk Factors Yes/No Anticoagulants Yes Impressions: Left lower extremity: normal deep exam. Abnormal superficial exam: GSV thrombosis c/w successful ablation. Left lower extremity: normal contralateral exam. Recommendations: Test completed on 11/19/2016 at 3:19:24 pm. Critical findings reported to Dr. Mcginnis by phone at 3:19:35 pm on 11/19/2016 by Dolores Randolph RVT, RDCS. Findings Venous Duplex Results: Right: Venous imaging of the lower extremity reveals full patency and normal vessel compressibility of the right common femoral. Doppler signals in the evaluated veins were normal. Left: Venous imaging of the lower extremity reveals full patency and normal vessel compressibility of the left distal iliac, left common femoral, left superficial femoral, left popliteal, left posterior tibial, left peroneal, left saphenofemoral junction and left lesser saphenous. Doppler signals in the evaluated veins were normal. The left great saphenous above knee demonstrates an incompressible vein. Flow was absent and it did not augment. It has been ablated. Lower Extremity Venous Duplex Side Vein Compress Spontaneous Flow Augment Diameter (cm) Depth (cm) Left Distal Iliac Normal Yes Phasic Yes Left Common Femoral Normal Yes Phasic Yes Left Superficial Femoral Normal Yes Phasic Yes Left Popliteal Normal Yes Phasic Yes Left Posterior Tibial Normal Yes Phasic Yes Left Peroneal Normal Yes Phasic Yes Left Saphenofemoral Junction Normal Yes Phasic Yes Left Great Saphenous [place] None no Absent no Left Lesser Saphenous Normal Yes Phasic Yes Right Common Femoral Normal Yes Phasic Yes Updated by Prateek Ji MD, FACS on 11/20/2016 6:48:01 PM Prateek Ji MD electronically signed on 11/20/2016 6:48:26 PM with status of Final
[2016-11-21] MEDS: Vancomycin 2,000 MG in D5% in Water 500 ML IVPB SCH ×2 (03:59→16:30)
[2016-11-21 05:34] LABS: Basophils % 0.2 %; Eosinophils # 0.2 K/mcL (0.0-0.6); Eosinophils % 4.2 %; Hematocrit 41.1 % (37.5-50.1); Hemoglobin 13.3 g/dL (12.9-16.9); Immature Granulocytes % 0.2 % (0-4); Lymphocytes # 1.1 K/mcL (0.6-4.6); Mean Corpuscular HGB Conc 32.4 g/dL (31.6-35.5); Mean Corpuscular Hemoglobin 27.7 pg (28.0-33.3); Mean Corpuscular Volume 85.4 fL (83.0-100.0); Mean Platelet Volume 11.2 fL (9.4-12.4); Monocytes # 0.5 K/mcL (0.0-1.3); Monocytes % 10.8 %; Neutrophils # 3.2 K/mcL (1.6-8.9); Platelet Count 151 K/mcL (140-400); Red Blood Count 4.81 M/mcL (4.19-5.50); Red Cell Distribution Width 14.6 % (11.5-14.5); Segmented Neutrophils % 63.6 %
[2016-11-21] MEDS: *HR* Enoxaparin 40 MG/0.4 ML SYRINGE SQ SCH (05:53)
[2016-11-21 05:56] LABS: BUN/Creatinine Ratio 14 (6-26); Blood Urea Nitrogen 11 mg/dL (8-26); Calcium 9.1 mg/dL (8.6-10.8); Carbon Dioxide 27 mEq/L (19-29); Chloride 105 mEq/L (98-109); Glucose 112 mg/dL (70-99); Magnesium 1.9 mg/dL (1.6-2.6); Osmolality,Calculated 290 (280-300); Potassium 3.6 mEq/L (3.5-4.5); Sodium 140 mEq/L (136-145); eGFR For African Americans > 60 (> 60); eGFR For Non-African Americans > 60 (> 60)
[2016-11-21] MEDS: Acetaminophen 325 MG TABLET PO PRN ×2 (08:03→16:46)
[2016-11-21] MEDS: Lactobacillus 1 EACH CAP.SPRINK PO SCH (11:18)
[2016-11-21] MEDS: Isosorbide MONOnitrate (24 HR) 60 MG TAB.ER.24H PO SCH (11:18)
[2016-11-21] MEDS: Famotidine 20 MG TABLET PO SCH ×2 (11:19→19:45)
[2016-11-21] MEDS: Multivit/Ca/Min/Fe/FA 1 TAB TABLET PO SCH (11:19)
[2016-11-21] MEDS: hydroCHLOROthiazide 25 MG TABLET PO SCH (11:19)
--- NOTE | 2016-11-21 13:43 | Internal Med Progress Note ---
<Debo Mueller - Last Filed: 11/21/16 13:38> Date of Encounter: 11/21/16 Time of Encounter: 09:00 - Assessment and plan (1) Cellulitis of left lower extremity without foot Current Visit: Yes Status: Acute Assessment and plan: Patient with history of right lower extremity cellulitis recently hospitalized 2 presents with left lower extremity cellulitis. Previously, infectious disease was consult during hospitalization 10/28/16. Blood cultures on: and 10/28/16 never identified any obvious organism. Patient has had multiple antibiotic regimens. There was no obvious source at that time. Suspect venous stasis in addition. Additionally, one year ago patient had a traumatic injury to the left lower extremity for which he had a wound that did not heal well and was seen by wound care for evaluation 12/29/15. Blood cultures on 10/13/15 and 10/30/16 were negative at that time as well. Today patient reported a small area on the anterior right tibial region as one by one area of erythema that may have developed last night. Marked today will continue to follow. Vitals stable. Afebrile. Nonfocal neurologic exam. We will continue current course of IV vancomycin and evaluate for clinical signs of resolution. Supportive therapy Acetaminophen when necessary for fevers Continue IV vancomycin with pharmacy to dose and follow daily. GI prophylaxis DVT prophylaxis Daily labs to correlate with clinical response. Daily skin examinations to evaluate marked margins for progression of cellulitis versus resolution May consider infectious disease consult. Blood cultures pending Encouraged hygiene and skin cleanliness Encourage outpatient follow-up with primary care provider Encouraged weight loss and activity Patient has missed multiple days of work and is very concerned about the cost of his care. Will consult manager social work for further resources and assistance that may be available to patient. The assessment and plan as outlined above was discussed with the patient and/or family members who expressed understanding and agreement. All questions were answered. (2) Morbid obesity with BMI of 50.0-59.9, adult Current Visit: Yes Status: Acute Assessment and plan: BMI is 52. Discussed benefits of weight loss and increasing physical activity. Suggest patient follow-up with his primary care provider to establish outpatient weight loss program and for further management and follow-up. (3) HTN (hypertension) Current Visit: Yes Status: Chronic Assessment and plan: Controlled. Vital stable. Continue home medications. Qualifiers: Hypertension type: essential hypertension Qualified Code(s): I10 - Essential (primary) hypertension (4) CAD (coronary artery disease) Current Visit: Yes Status: Chronic Assessment and plan: Continue preventative measures with current home medications aspirin, Plavix, statin. Qualifiers: Coronary Disease-Associated Artery/Lesion type: [place] artery [place] vs. transplanted heart: [place] heart Associated angina: without angina Qualified Code(s): I25.10 - Atherosclerotic heart disease of [place] coronary artery without angina pectoris (5) DVT prophylaxis Current Visit: Yes Status: Acute Assessment and plan: Continue Lovenox - Subjective Interval history: Patient was seen and examined. He reports no acute events overnight. Patient states that he feels that his left lower extremity is relatively unchanged from yesterday and that he may have developed a small patch on the right leg this morning. Skin examined and marked on right. Left lower extremity is erythematous and moderately edematous and warm with skin intact and is well contained within skin marking edges and has not demonstrated any advancement. There does not appear to be any progression of the cellulitis in fact there is minimal resolution today around skin markings. Discussed this with patient. Patient was concerned that he may need more aggressive therapy. Blood cultures pending. Patient denies chest pain, dyspnea, fever, chills. Vitals stable. Afebrile. Nonfocal neurologic exam. Patient is concerned that he has missed so many days of work recently due to being hospitalized he is very concerned about the cost of his hospital care. Will consult manager social work to further discuss plan of action for financial assistance and resources. - Constitutional Vitals: Temp Pulse Resp BP Pulse Ox 97.8 F 73 18 116/67 95 11/21/16 11:05 11/21/16 11:05 11/21/16 11:05 11/21/16 11:05 11/21/16 11:05 Exam: General: Cooperative, pleasant, no acute distress, alert and oriented 3, answers questions appropriately, obese HEENT: Normocephalic, atraumatic, neck supple, trachea midline, Conjunctiva pink , sclera anicteric, EOMI, PERRL, oral mucosa moist, no orophargeal erythema or exudates Respiratory: No accessory muscle usage, distant lung sounds/diminished clear to auscultation bilaterally, no wheezes/rhonchi/rales appreciated Cardiovascular: Regular rate and rhythm, S1 and S2 present, no murmurs/rubs/ gallops/clicks appreciated GI/abdominal: protuberant, midepigastric tenderness, soft, normal bowel sounds, no peritoneal signs Extremities: Left lower extremity calf tenderness with irregular macular erythema and multiple intact pustular lesions, warmth, noncyanotic, pedal edema appreciated, warm, lower extremity pulses palpable and symmetrical. Patient reports a very small 1 x 1 cm area on the right leg that he says has developed overnight edges are marked. Neurological: Alert and oriented 3, no facial droop, no focal deficits Skin: Dry, intact Internal Medicine: Result - Labs CBC & Chem 7: 11/21/16 04:34 11/21/16 04:34 Labs: Short CBC 11/21/16 Range/Units 04:34 WBC 5.0 (4.3-11.1) K/mcL Hgb 13.3 (12.9-16.9) g/dL Hct 41.1 (37.5-50.1) % Plt Count 151 (140-400) K/mcL Neutrophils # 3.2 (1.6-8.9) K/mcL BMP 11/21/16 04:34 Sodium 140 Potassium 3.6 Chloride 105 Carbon Dioxide 27 BUN 11 Creatinine 0.80 Glucose 112 H Calcium 9.1 Consult Discharge Plan - Plan Referrals: Beka Young MD [Primary Care Provider] - <Thea Dickens E - Last Filed: 11/21/16 15:48> Date of Encounter: 11/21/16 - Constitutional Vitals: Temp Pulse Resp BP Pulse Ox 97.8 F 73 18 116/67 95 11/21/16 11:05 11/21/16 11:05 11/21/16 11:05 11/21/16 11:05 11/21/16 11:05 Internal Medicine: Result - Labs CBC & Chem 7: 11/21/16 04:34 11/21/16 04:34 Labs: Short CBC 11/21/16 Range/Units 04:34 WBC 5.0 (4.3-11.1) K/mcL Hgb 13.3 (12.9-16.9) g/dL Hct 41.1 (37.5-50.1) % Plt Count 151 (140-400) K/mcL Neutrophils # 3.2 (1.6-8.9) K/mcL BMP 11/21/16 04:34 Sodium 140 Potassium 3.6 Chloride 105 Carbon Dioxide 27 BUN 11 Creatinine 0.80 Glucose 112 H Calcium 9.1 - Attending Attestation I examined this patient and reviewed laboratory, imaging and all diagnostic data. My medical decision-making was reviewed with Dr Debo Mueller - Resident Physician. I agree with the documented findings, disposition and treatment plan as described above.
[2016-11-21] MEDS: Pantoprazole 40 MG VIAL IVP SCH (14:35)
[2016-11-21] MEDS: Aspirin Enteric Coated 81 MG Tablet PO SCH (18:33)
[2016-11-21] MEDS: Loratadine 10 MG TABLET PO SCH (18:33)
[2016-11-22] MEDS: Vancomycin 2,000 MG in D5% in Water 500 ML IVPB SCH ×2 (03:59→17:07)
[2016-11-22] MEDS: *HR* Enoxaparin 40 MG/0.4 ML SYRINGE SQ SCH (06:30)
[2016-11-22] MEDS: Acetaminophen 325 MG TABLET PO PRN ×2 (06:32→17:08)
[2016-11-22] MEDS: Lactobacillus 1 EACH CAP.SPRINK PO SCH (09:39)
[2016-11-22] MEDS: Multivit/Ca/Min/Fe/FA 1 TAB TABLET PO SCH (09:39)
[2016-11-22] MEDS: Pantoprazole 40 MG VIAL IVP SCH (09:39)
[2016-11-22] MEDS: Isosorbide MONOnitrate (24 HR) 60 MG TAB.ER.24H PO SCH (09:39)
[2016-11-22] MEDS: Famotidine 20 MG TABLET PO SCH ×2 (09:40→20:22)
[2016-11-22] MEDS: hydroCHLOROthiazide 25 MG TABLET PO SCH (09:40)
--- NOTE | 2016-11-22 14:55 | Internal Med Progress Note ---
Date of Encounter: 11/22/16 Time of Encounter: 11:30 - Assessment and plan (1) Cellulitis of left lower extremity without foot Current Visit: Yes Status: Acute Assessment and plan: Recurrent right lower extremity cellulitis. Risk factors: fungal toe nail infection, folliculitis, obesity, recent leg surgery for vein stripping a month ago. Additionally, one year ago patient had a traumatic injury to the left lower extremity for which he had a wound that did not heal well and was seen by wound care for evaluation 12/29/15. Clinically slowly improving. Continue IV vancomycin with pharmacy to dose and follow daily. Blood cultures negative so far start miconazol topical to foot Encouraged hygiene and skin cleanliness Encourage outpatient follow-up with primary care provider Encouraged weight loss and activity (2) CAD (coronary artery disease) Current Visit: Yes Status: Chronic Assessment and plan: Continue home medications aspirin, Plavix, statin. Qualifiers: Coronary Disease-Associated Artery/Lesion type: [place] artery [place] vs. transplanted heart: [place] heart Associated angina: without angina Qualified Code(s): I25.10 - Atherosclerotic heart disease of [place] coronary artery without angina pectoris (3) HTN (hypertension) Current Visit: Yes Status: Chronic Assessment and plan: bp is adequate. Continue home medications. Qualifiers: Hypertension type: essential hypertension Qualified Code(s): I10 - Essential (primary) hypertension (4) Morbid obesity with BMI of 50.0-59.9, adult Current Visit: Yes Status: Acute Assessment and plan: BMI is 52. follow-up with his primary care provider to establish outpatient weight loss program and for further management and follow-up. - Subjective Interval history: No pain. no leg swelling. - Constitutional Vitals: Temp Pulse Resp BP Pulse Ox 97.9 F 67 16 108/63 95 11/22/16 11:35 11/22/16 11:35 11/22/16 11:35 11/22/16 11:35 11/22/16 11:35 General appearance: Present: cooperative, A&O X 3, pleasant, no acute distress, answers questions appropriately - Neck Neck exam general surgery: Present: supple, trachea midline. Absent: lymphadenopathy - Respiratory Respiratory exam: Present: CTAB - Cardiovascular Cardiovascular exam: Present: RRR - GI/Abdominal GI/Abdominal exam: Present: normal bowel sounds, soft. Absent: distended, tenderness - Extremities Exam Additional comments: Left lower extremity: there is irregular macular erythema that continues to fade off and multiple intact pustular lesions, warmth, noncyanotic, pedal edema appreciated, warm, lower extremity pulses palpable and symmetrical. - Back Exam Back exam: Absent: CVA tenderness (L), CVA tenderness (R) - Neurological Exam Neurological exam: Present: alert, oriented X3, no focal deficits, strengths equal and symetr throughout. Absent: facial droop, speech deficit - Skin Skin exam: Absent: rash Internal Medicine: Result - Labs CBC & Chem 7: 11/21/16 04:34 11/21/16 04:34 Consult Discharge Plan - Plan Referrals: Beka Yuong MD [Primary Care Provider] -
[2016-11-22] MEDS: Aspirin Enteric Coated 81 MG Tablet PO SCH (17:08)
[2016-11-22] MEDS: Loratadine 10 MG TABLET PO SCH (17:08)
[2016-11-22] MEDS: Miconazole 2% cream 118 GM TUBE TP SCH ×2 (17:14→20:23)
[2016-11-23 05:01] LABS: Basophils % 0.5 %; Eosinophils # 0.2 K/mcL (0.0-0.6); Eosinophils % 4.4 %; Hematocrit 43.9 % (37.5-50.1); Hemoglobin 14.3 g/dL (12.9-16.9); Immature Granulocytes % 0.2 % (0-4); Lymphocytes # 1.2 K/mcL (0.6-4.6); Lymphocytes % 22.1 %; Mean Corpuscular HGB Conc 32.6 g/dL (31.6-35.5); Mean Corpuscular Hemoglobin 28.1 pg (28.0-33.3); Mean Corpuscular Volume 86.4 fL (83.0-100.0); Mean Platelet Volume 10.9 fL (9.4-12.4); Monocytes # 0.6 K/mcL (0.0-1.3); Monocytes % 10.2 %; Neutrophils # 3.4 K/mcL (1.6-8.9); Platelet Count 179 K/mcL (140-400); Red Blood Count 5.08 M/mcL (4.19-5.50); Red Cell Distribution Width 14.4 % (11.5-14.5); Segmented Neutrophils % 62.6 %
[2016-11-23] MEDS: *HR* Enoxaparin 40 MG/0.4 ML SYRINGE SQ SCH (05:07)
[2016-11-23] MEDS: Acetaminophen 325 MG TABLET PO PRN (05:07)
[2016-11-23] MEDS: Vancomycin 2,000 MG in D5% in Water 500 ML IVPB SCH ×2 (05:07→16:47)
[2016-11-23 05:34] LABS: Alanine Aminotransferase 45 Units/L (0-55); Albumin 3.4 g/dL (3.5-5.0); Alkaline Phosphatase 49 Units/L (38-126); Aspartate Amino Transferase 32 Units/L (5-34); BUN/Creatinine Ratio 14 (6-26); Bilirubin,Direct 0.3 mg/dL (0.0-0.5); Bilirubin,Indirect 0.3 mg/dL (0.0-1.2); Bilirubin,Total 0.6 mg/dL (0.2-1.2); Blood Urea Nitrogen 12 mg/dL (8-26); Calcium 9.5 mg/dL (8.6-10.8); Carbon Dioxide 26 mEq/L (19-29); Chloride 104 mEq/L (98-109); Globulin 3.4 g/dL (2.4-3.5); Glucose 94 mg/dL (70-99); Magnesium 1.8 mg/dL (1.6-2.6); Osmolality,Calculated 290 (280-300); Potassium 3.9 mEq/L (3.5-4.5); Sodium 140 mEq/L (136-145); Total Protein 6.8 g/dL (6.0-8.3); eGFR For African Americans > 60 (> 60); eGFR For Non-African Americans > 60 (> 60)
[2016-11-23] MEDS: Lactobacillus 1 EACH CAP.SPRINK PO SCH (08:57)
[2016-11-23] MEDS: Multivit/Ca/Min/Fe/FA 1 TAB TABLET PO SCH (08:57)
[2016-11-23] MEDS: Famotidine 20 MG TABLET PO SCH (08:57)
[2016-11-23] MEDS: Isosorbide MONOnitrate (24 HR) 60 MG TAB.ER.24H PO SCH (08:57)
[2016-11-23] MEDS: hydroCHLOROthiazide 25 MG TABLET PO SCH (08:57)
[2016-11-23] MEDS: Pantoprazole 40 MG VIAL IVP SCH (08:58)
[2016-11-23] MEDS: Miconazole 2% cream 118 GM TUBE TP SCH (08:58)
--- NOTE | 2016-11-23 14:42 | Discharge Summary ---
Date of Encounter: 11/23/16 Time of Encounter: 14:36 - Discharge Diagnosis (1) Cellulitis of left lower extremity without foot Priority: Primary Status: Acute (2) CAD (coronary artery disease) Priority: Secondary Status: Chronic Qualifiers: Coronary Disease-Associated Artery/Lesion type: [place] artery [place] vs. transplanted heart: [place] heart Associated angina: without angina Qualified Code(s): I25.10 - Atherosclerotic heart disease of [place] coronary artery without angina pectoris (3) HTN (hypertension) Priority: Secondary Status: Chronic Qualifiers: Hypertension type: essential hypertension Qualified Code(s): I10 - Essential (primary) hypertension (4) Morbid obesity with BMI of 50.0-59.9, adult Priority: Secondary Status: Chronic - Discharge Medications Prescriptions: Doxycycline 100 mg PO BID #28 capsule Home Medications: Atenolol [Tenormin] 75 mg PO DAILY #0 03/31/15 [History] Atorvastatin Calcium [Lipitor] 80 mg PO HS #0 03/31/15 [History] Clopidogrel [Plavix] 75 mg PO DAILY #0 03/31/15 [History] Famotidine [Pepcid] 20 mg PO BID #0 03/31/15 [History] hydroCHLOROthiazide [Hydrochlorothiazide] 25 mg PO DAILY #0 03/31/15 [History] Aspirin Enteric Coated [Aspirin EC] 81 mg PO QPM 11/03/15 [History] Potassium 99 mg PO DAILY 11/03/15 [History] Albuterol Sulfate [Albuterol Inhaler] 2 puff IH Q4HR PRN 08/13/16 [History] Cetirizine HCl [Zyrtec] 10 mg PO QPM 08/13/16 [History] Cyclobenzaprine HCl 5 mg PO DAILY PRN 08/13/16 [History] Isosorbide MONOnitrate (24 HR) [Imdur] 60 mg PO DAILY 08/13/16 [History] Nitroglycerin [Nitrostat] 0.4 mg SL Q5M PRN 08/13/16 [History] Pantoprazole Sodium [Protonix] 40 mg PO QPM 08/13/16 [History] Acetaminophen [Tylenol] 1,000 mg PO Q6HR PRN #0 tablet 09/23/16 [Rx] Clotrimazole 1% CRM [Lotrimin 1%] 1 appl TP BID 11/19/16 [History] Lactobacillus [Culturelle] 1 each PO DAILY 11/19/16 [History] Mupirocin [Bactroban Oint] 1 appl TP TID 11/19/16 [History] Doxycycline 100 mg PO BID #28 capsule 11/23/16 [Rx] Allergies/Adverse Reactions: Allergies No Known Allergies Allergy (Verified 10/14/16 10:08) Date of admission: 11/19/16 16:29 Primary care physician: Beka Young MD Consults: 11/21/16 10:56 Consult to Records Officer [CONS] Routine Reason for SW Consult: Financial assistance - Patient Status Disposition: Home, Self-Care Condition: Good Functional capacity at discharge: independent ambulation Overall status at discharge: patient is progressing back to baseline - Discharge Instructions Instructions: Doxycycline (By mouth), Cellulitis (DC) Follow Up With: Beka Young MD [Primary Care Provider] - Blanquita Hines CNP [Advanced Practice Nurse] - (follow up in 1 week.) - Diet and Activity Activity: resume usual activities as tolerated Diet: low fat, low cholesterol, low salt diet Interval History: no leg pain. Hospital course: Mr. Herzog is a 51 year old male with past medical history of HTN, CAD, GERD and recent stripping and ablation of varicose veins in September who presents with left lower extremity erythema, and swelling. This is the third time patient has cellulitis of his legs. He was started on IV vancomycin with clinical improvement. blood cultures negative. Recurrence of LE cellulitis is likely secondary to underlying venous insufficiency and BLE edema, obesity, chronic folliculitis since childhood and suspected tinea pedis. 09/27/2016: Has varicose veins removed. 10/14/15: Admitted with cellulitis of left lower extremity treated with Zosyn and vancomycin while inpatient, discharged home on doxycycline cultures negative at that time. 11/03/16: Admitted to [facility] with right lower leg cellulitis. He was given vancomycin and was discharged on keflex. Cultures at that time were also negative. PLAN: doxycycline. f/u in the ID clinic. - Time Spent with Patient Total time spent providing and/or coordinating discharge services: - Constitutional Vitals: Temp Pulse Resp BP Pulse Ox 98.3 F 71 16 115/70 95 11/23/16 10:46 11/23/16 10:46 11/23/16 10:46 11/23/16 10:46 11/23/16 10:46 General appearance: Present: cooperative, A&O X 3, pleasant, no acute distress, answers questions appropriately - Neck Neck exam general surgery: Present: supple, trachea midline - Respiratory Respiratory exam: Present: CTAB - Cardiovascular Cardiovascular exam: Present: RRR - GI/Abdominal GI/Abdominal exam: Present: normal bowel sounds, soft. Absent: distended, tenderness - Extremities Exam Extremities exam: Present: pedal edema - Back Exam Back exam: Absent: CVA tenderness (L), CVA tenderness (R) - Neurological Exam Neurological exam: Present: alert, oriented X3, no focal deficits, strengths equal and symetr throughout. Absent: facial droop, speech deficit
[2016-11-23] MEDS: Aspirin Enteric Coated 81 MG Tablet PO SCH (16:52)
[2016-11-23] MEDS: Loratadine 10 MG TABLET PO SCH (16:52)
[2016-11-23 17:27] VITALS: BP 118/74
[2016-11-23] MEDS ORDERED: Aminoglycoside Consult 1 EACH MC ONE (20:19)
== END 2016-11-23 20:20 | disposition home or self-care (01) | DRG 603 ==
LOC: 3NENU 11:50 → EMEROO 11:50 → SUATTDRO 16:29 → 3NENU 16:52
PROVIDERS: ADMIT Nurse Practitioner Acute Care; ATTEND Internal Medicine